=== PATIENT | male | born 1945 | race Caucasian/White ===

== ENCOUNTER 2018-08-02 14:23 | Outpatient (RCR) | payer MEDICARE, SELFPAY | END 2018-08-06 23:59 | disposition home or self-care (01) | LOC: PRC 14:23 | PROVIDERS: PCP Nurse Practitioner Primary Care; Visit Provider Nurse Practitioner Primary Care | DX: J44.9 Chronic obstructive pulmonary disease, unspecified (principal); Z51.89 Encounter for other specified aftercare ==

== ENCOUNTER 2018-09-04 11:21 | Outpatient (RCR) | payer OTHER, MEDICARE, SELFPAY | END 2018-09-06 23:59 | disposition home or self-care (01) | LOC: PRC 11:21 | PROVIDERS: PCP Nurse Practitioner Primary Care; Visit Provider Nurse Practitioner Primary Care | DX: J44.9 Chronic obstructive pulmonary disease, unspecified (principal); Z51.89 Encounter for other specified aftercare | CPT/HCPCS: G0424 ==

== ENCOUNTER 2018-09-07 12:36 | Outpatient (RCR) | payer OTHER, MEDICARE, SELFPAY | END 2018-10-06 23:59 | disposition home or self-care (01) | LOC: PRC 12:36 | PROVIDERS: PCP Nurse Practitioner Primary Care; Visit Provider Nurse Practitioner Primary Care | DX: J44.9 Chronic obstructive pulmonary disease, unspecified (principal) | CPT/HCPCS: G0424 ==

== ENCOUNTER 2018-10-04 02:00 | Outpatient (RCR) | payer OTHER, SELFPAY | END 2018-10-06 23:59 | disposition home or self-care (01) | LOC: PRC 02:00 | PROVIDERS: PCP Nurse Practitioner Primary Care; Visit Provider Family Medicine | DX: J44.9 Chronic obstructive pulmonary disease, unspecified (principal); Z51.89 Encounter for other specified aftercare | CPT/HCPCS: G0424 ==

== ENCOUNTER 2018-10-25 09:42 | Outpatient (RCR) | payer OTHER, SELFPAY | END 2018-11-06 23:59 | disposition home or self-care (01) | LOC: PRC 09:42 | PROVIDERS: PCP Nurse Practitioner Primary Care; Visit Provider Family Medicine | DX: J44.9 Chronic obstructive pulmonary disease, unspecified (principal); Z51.89 Encounter for other specified aftercare | CPT/HCPCS: G0424 ==

== ENCOUNTER 2018-11-08 12:37 | Outpatient (RCR) | payer OTHER, SELFPAY | END 2018-12-07 23:59 | disposition home or self-care (01) | LOC: PRC 12:37 | PROVIDERS: PCP Nurse Practitioner Primary Care; Visit Provider Family Medicine | DX: J44.9 Chronic obstructive pulmonary disease, unspecified (principal); Z51.89 Encounter for other specified aftercare ==

== ENCOUNTER 2019-11-16 09:50 | Outpatient (CLI) | payer OTHER, SELFPAY | END 2019-11-16 10:10 | PROVIDERS: PCP Nurse Practitioner Primary Care; Visit Provider Surgery | DX: Z01.818 Encounter for other preprocedural examination (principal) ==

== ENCOUNTER 2019-11-20 00:36 | Outpatient (CLI) | payer OTHER, SELFPAY ==
--- NOTE | 2019-11-20 09:27 | DI.NM_ITS ---
APPROVED REPORT Exam: Exercise Treadmill Patient Location: Out-Patient Room/Bed: Stress Nurse: Quyen Butler RN BMI: 29.98 Baseline Rhythm: Sinus Rhythm Indications: Patient reports his ???breathing is a little worse than normal??? [facility] and states their E[facility] showed an abnormality, patient was unsure of the change, however he reported ???a c hange in T wave???. 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 Medical History Medical History: Lung Tumor Cardiac Medications: Aspirin Allergies: No known drug allergies Cardiac Risk Factors: FHX of CAD, Hyperlipidemia, COPD Previous Cardiac Procedures: PCI Pretest Chest Pain Characteristics: None Exercise History: Sedentary Lung Sounds: Dimished throughout with crackles in bases bilaterally Heart Sounds: Regular Stress Test Details Test: Exercise stress converted to pharmacologic stress due to failure to obtain a diagnostic stress test. Rest Isotope: Tc-99m Sestamibi. Dose: 12.1 Date: 11/20/2019 Injection Time: 0850 Stress Isotope: Tc-99m Sestamibi. Dose: 37.5 Date: 11/20/2019 Injection Time: 1030 HR Max Heart Rate (APMHR): 144 bpm Resting HR Supine: 76 bpm Target HR (85% APMHR): 122 bpm Resting HR Standin bpm Max HR Achieved: 98 bpm % of APMHR: 68 HR response to stress: Normal HR response to stress BP Resting BP Supine: 130/80 mmHg Resting BP Standin/70 mmHg Max BP: 160/80 mmHg BP response to stress: Normal blood pressure response to stress. ECG Resting ECG: Sinus Rhythm Ectopy: Occasional PVC's Stress ECG: Sinus Rhythm ST Change: Normal Arrhythmia: VPC's Recovery ECG: Sinus Rhythm Recovery ST Change: Normal Recovery Arrhythmia: VPC Clinical Reason for Termination: Fatigue Stress Symptoms: None Exercise duration: 2 min30 sec Highest Stage Achieved: Stage 1: 1.7 mph at 10% grade. Exercise capacity: 4.64 METs Functional Capacity: Markedly diminished capacity Stress ECG Conclusion 1. This was an exercise treadmill test that was converted to pharmacological. 2. There is no evidence of ischemia on the ECG portion of this exam. Protocol Used: Danyel Protocol Stress Test Summary STAGE Time (mins) Speed (mph) Grade (%) HR BP SYMPTOMS METS Supine 76 130/80 Standing 77 140/70 1 minute of recovery 75 144/60 1 minute post Lexiscan injection 67 160/80 3 minute post Lexiscan injection 90 140/80 6 minute post Lexiscan injection 86 130/70 MPI Conclusion Patient's ejection fraction with stress was 60%. There were no wall motion abnormalities. There was no evidence of ischemia on the imaging portion of this exam This represents a normal SPECT stress test. Radiologist Interpretation Radiologist Interpretation by: Ralf Prasad MD Interpretation Date/Time: 11/20/2019 16:29:04
[2019-11-20] MEDS: Regadenoson 0.4 MG/5 ML SYR IVP (11:33)
== END 2019-11-20 00:56 ==
PROVIDERS: PCP Nurse Practitioner Primary Care; Visit Provider Nurse Practitioner Primary Care
DX: R06.02 Shortness of breath (principal); R94.31 Abnormal electrocardiogram [ECG] [EKG]; J44.9 Chronic obstructive pulmonary disease, unspecified; Z82.49 Family history of ischemic heart disease and other diseases of the circulatory system
CPT/HCPCS: 78452; 93017; J2785

== ENCOUNTER 2019-11-22 09:32 | Day surgery (SDC) | payer OTHER, SELFPAY ==
[2019-11-16 10:29] VITALS: BP 143/78; PULSE 95; RESP 18; TEMP 37; O2SAT 94
[2019-11-22 09:55] VITALS: BP 139/75; PULSE 79; RESP 18; TEMP 36.6; O2SAT 92
[2019-11-22] MEDS: Lactated Ringers 1,000 ML 80 ML IV (10:45)
--- NOTE | 2019-11-22 11:14 | HPE_ITS ---
Date of service: 11/22/19 Time of Service: 11:14 Assessment and Plan Assessment and plan (1) Shortness of breath: Status: Acute (2) History of colon polyps: Status: Acute Assessment and plan: Informed consent is obtained for the procedural (explained in simple layman's terms that the pt and/or family could understand) explaining risks vs benefits and alternatives to the procedure and consequences if we do not do the procedure and need/rational for the procedure. Risks include but are not limited to: bleeding, infection, perforation of esophagus, stomach, colon, small intestines, bronchus or trachea, or PTX. This would necessitate emergency surgery to repair the damage w/ possible ostomy; and other associated complications w/ the required surgery. Also complications of anesthesia including aspiration, PR/CVA/. History of Present Illness Consults Consult date: 11/22/19 Narrative: pt is here today in for screening CE. He has had polyps in the past on his last CE in 2013. He completed prep without problems. No abdominal pain or bleeding. His breathing is the same as always. No chest pain. No sputum. no fever/chills. He no longer smokes. No changes in meds or health status since he was in office for H&P. From H&P: 74 y/o male with history of COPD presents for colonoscopy screening pre-op. His last screening was in 2013, which was remarkable for several polyps. He denies a family history of colon cancer. He denies any changes in bowel habits including bloody or black tarry stools, abdominal pain, diarrhea or constipation. He denies constitutional symptoms. Denies use of marijuana or any other recreational or illegal drugs. He reports dyspnea with exertion. He is currently on 5L 02 intermittent during the day and 4L 02 at night while sleeping. He participates in pulmonary rehab at [facility] 2x/wk and reports use of the treadmill and bike. His last MET scores for pulmonary rehab at [facility] in 2018 was 2-3. He denies chest pain, palpitations, dyspnea. He denies prior history or family history of adverse reactions or complications with anesthesia. Review of Systems Narrative: chronic SOB All systems reviewed & are unremarkable except as noted in HPI and below Cardiovascular Cardiovascular: Reports dyspnea on exertion Respiratory Respiratory: Denies chest congestion, Reports cough, Denies excessive phlegm production, Denies pain on inspiration, Denies pain with cough and Reports dyspnea on exertion Comments: pt is on 4L at home. [facility] Medical History COPD (chronic obstructive pulmonary disease) (Chronic) Edema (Acute) History of colon polyps (Acute) Tubular adenoma Hyperlipidemia (Acute) Hypoxemia (Acute) Sensorineural hearing loss (Acute) Shortness of breath (Acute) Surgical History History of appendectomy (Chronic) History of colonoscopy with polypectomy (Acute ~09/07/14) Done at [place] in [place] Tubular adenoma, hyperplastic polyp History of hernia repair (Chronic) History of tonsillectomy (Chronic) Social History Smoking/Tobacco Use Status: Former Tobacco Use Quit Date: 11/07/94 Alcohol Intake: current Alcohol Intake frequency: 0-2 drinks per day Alcohol type: beer Drug use: Never Substance use type: former substance user Details: 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 Do you feel safe at home: Yes Do you feel safe in your relationship?: Yes Meds Home Medications and Allergies Home Medications Medication Instructions Recorded Confirmed Type albuterol sulfate 90 mcg/actuation 2 puff IH Q6H PRN 09/25/19 11/22/19 History aerosol inhaler budesonide-formoterol HFA 80 2 puff IH BID 09/25/19 11/16/19 History mcg-4.5 mcg/actuation aerosol inhaler tiotropium bromide 2.5 2 puff IH DAILY 09/25/19 11/16/19 History mcg/actuation mist for inhalation Oxygen #1 each 10/18/19 10/18/19 History acetaminophen 325 mg tablet 325 mg PO ONCE PRN 10/18/19 11/22/19 History aspirin 325 mg tablet,delayed 325 mg PO PRN tab 10/18/19 11/22/19 History release bisacodyl 5 mg tablet,delayed 5 mg PO ONCE #4 tab 10/18/19 11/22/19 Rx release ibuprofen 200 mg tablet 200 mg PO Q6H PRN 10/18/19 11/22/19 History polyethylene glycol 3350 17 238 g PO ONCE #238 gm 10/18/19 11/22/19 Rx gram/dose oral powder Allergies Allergy/AdvReac Type Severity Reaction Status Date / Time No Known Allergies Allergy Verified 11/22/19 10:10 Exam Const General: cooperative, healthy appearing, comfortable, no acute distress, well developed and well groomed Nutritional Appearance: average body habitus and well nourished Orientation: alert, awake and oriented x3 [facility] Head: normal to inspection, normocephalic and atraumatic Ears: hearing grossly normal bilaterally and external ears normal General nose exam: external nose normal Face and sinus: normal facial exam and sinuses nontender Mouth: oral mucosae normal, lip normal, tongue normal and moist mucous membranes Teeth and gingiva: dentition normal Eyes General: appearance normal, both eyes and all related structures Conjunctivae: conjunctivae normal Sclera: sclerae normal Pupils: PERRL Neck Neck: normal visual inspection and full ROM Chest Chest: normal inspection of the chest Resp Effort & Inspection: normal respiratory effort, able to speak in complete sentences, no cough, no nasal flaring, not tachypneic and no use of accessory muscles Auscultation: clear to auscultation bilaterally, no rales, no rhonchi and no wheezes Cardio Jugular venous pressure: no JVD Rate: regular rate Rhythm: regular rhythm GI Inspection: normal to inspection, no edema and non-distended Palpation: soft, no masses, nontender and No ascites Auscultation: normal bowel sounds Skin General skin exam: no rashes or lesions noted Trauma: no lacerations or abrasions Neuro General: alert, oriented x3, oriented, gait normal, moves all extremities, no focal motor deficits and CN's II-XI intact bilaterally Cognition: normal cognition Speech: speech normal Gait: normal gait Motor: muscle tone normal throughout Extrem General: normal to inspection, full ROM and no clubbing, cyanosis or edema Psych Appearance: grossly normal and well kempt Mental Status: mental status grossly normal Speech and Movement: speech and movement normal Affect: normal affect Results Last Vital Signs Temp 36.6 C 11/22/19 09:55 Pulse 79 11/22/19 09:55 Resp 18 11/22/19 09:55 BP 139/75 11/22/19 09:55 Pulse Ox 92 L 11/22/19 09:55
--- NOTE | 2019-11-22 11:54 | W.PM.DSUDISC ---
Discharge Plan Disposition Patient Disposition: HOME Condition: Good Discharge Details Attending Provider: Sravani Meyer Primary Care Provider: Traci Cervantes Home Meds and New Rx's Prescriptions: Continued albuterol sulfate 90 mcg/actuation HFA aerosol inhaler 2 puff IH Q6H PRNRF: 0 Symbicort 80-4.5 mcg/actuation HFA aerosol inhaler 2 puff IH BID RF: 0 Spiriva Respimat 2.5 mcg/actuation mist 2 puff IH DAILY RF: 0 (DME) Oxygen Tank See Rx Instructions .ROUTE .MEDSUPPLY Qty: 1 RF: 0 acetaminophen 325 mg tablet 325 mg PO ONCE PRNRF: 0 ibuprofen 200 mg tablet 200 mg PO Q6H PRNRF: 0 aspirin 325 mg tablet,delayed release (DR/EC) 325 mg PO PRN RF: 0 Discontinued polyethylene glycol 3350 17 gram/dose powder 238 g PO ONCE Qty: 238 RF: 0 bisacodyl [Dulcolax (bisacodyl)] 5 mg tablet,delayed release (DR/EC) 5 mg PO ONCE Qty: 4 RF: 0 Discharge Instructions Instructions: Diverticulosis (GEN), High Fiber Diet (GEN), Diverticulosis Diet (GEN) Additional Instructions: Findings:no polyps moderate diverticular Dx Follow up: no further C scopes required, unless changes in bowel habits, bleeding or unexplained wt loss. Please call if you develop: fevers >101.5 Nausea or Vomiting Abdominal pain that is not transient DAY SURGERY UNIT POST COLONOSCOPY INSTRUCTIONS 1. Because there will be medication in your system for the next 24 hours, you may feel a little sleepy. Your coordination will be affected. Therefore: a. Do not drive or operate dangerous equipment for 24 hours. b. Do not drink alcohol beverages for 24 hours (not even beer). c. Plan to go home and rest for the day. 2. Generally there are no restrictions on your activity after a day or so has gone by, but you may feel a bit fatigued for a few days. 3 After you arrive home you may have a light meal and return to a normal diet as you can tolerate it without feeling sick to your stomach. 4. After surgery, you may feel pain or discomfort. This should be only transient, but if it persists please contact your doctor. 5. If there are any questions regarding the findings of your procedure, please feel free to contact your doctor. 6. If you are unable to contact your doctor with a problem, contact the hospital at [phone]. 7. Continue all your regular medications unless directed otherwise. I understand the above instructions and have no questions. Signature of Patient or Responsible Adult Escort Date/Time Name of Responsible Adult Escort Signature of Nurse Date/Time Activity:: No lifting over 20 pounds or strenuous activity x24 hours Diet:: small light meals x24 hours Discharge Orders Discharge Orders: Discharge Order (Routine); Ordered 11/22/19 Ordered By: Sravani Meyer DS: Diagnosis Discharge Diagnosis (1) Shortness of breath: Status: Acute (2) History of colon polyps: Status: Acute
--- NOTE | 2019-11-22 11:57 | W.COLOREPORT ---
Date of service: 11/22/19 Time of Service: 11:57 Colonoscopy Report Date of procedure: 11/22/19 Pre-op diagnosis general: A. polyps/diverticular dx Post-op diagnosis procedure note: same Procedure: ce Surgeon: Sravani Meyer Anesthesia proc note operative: GETA Estimated blood loss (mL): 0 Pathology: none sent Disposition: same day Prep: Miralax/Dulcolax Findings: diverticula Procedure Description: After informed consent was obtained the patient was taken to the procedure room and placed in a left decubitous position. Monitors were applied and a time out was done. The patients name, date of , procedure, allergies to medications and metal in their body was reviewed. The patient was then sedated. Once sedated and comfortable a rectal exam was done. External exam was normal. Internal exam revealed a normal sphincter tone and no palpable masses. The prostate nl. The scope was then introduced and retrofelexed. no internal hemorrhoids were identified. The scope was then advanced to the cecum w/out difficulty. The TI and appendiceal orifice were identified. The prep was good . The scope was then slowly retracted over 10 minutes back into the rectum. Polyps were removed at none. He does have moderate diverticula confined to the sigmoid colon. No signs of active bleeding or infection at this time. The scope was removed and the patient was woken up and taken back to Same day surgery in stable condition. The patient tolerated the procedure well and there were no immediate complications. Follow up: The patient does not require a repeat scope unless they develop changes in bowel habits or other new gastrointestinal complaints.
[2019-11-22 12:50] VITALS: BP 120/74; PULSE 74; RESP 16; TEMP 36.2; O2SAT 96
== END 2019-11-22 13:20 | disposition home or self-care (01) ==
PROVIDERS: PCP Nurse Practitioner Primary Care; Visit Provider Surgery
PROC: 0DJD8ZZ Inspection of Lower Intestinal Tract, Via Natural or Artificial Opening Endoscopic (ICD-10-PCS; CPT 45378; principal; 2019-11-22 09:45)
DX: Z12.11 Encounter for screening for malignant neoplasm of colon (principal); Z87.19 Personal history of other diseases of the digestive system; K57.30 Diverticulosis of large intestine without perforation or abscess without bleeding; J44.9 Chronic obstructive pulmonary disease, unspecified
CPT/HCPCS: 45378; NC; J2001

== ENCOUNTER 2020-05-29 12:54 | Inpatient (IN) | payer OTHER, SELFPAY ==
[2020-05-29] VITALS (34 sets, daily range): BP systolic 121–184; BP diastolic 72–93; PULSE 79–105; RESP 12–22; TEMP 36.4–37; O2SAT 90–98
--- NOTE | 2020-05-29 12:45 | RT.EKG_ITS ---
APPROVED REPORT Exam: Resting ECG Patient Location: E HR:102 bpm ECG Measurements Heart Rate 102 AXIS WV 198 P 88 QRSd 104 QRS 85 QT 342 T 9 QTc 446 <Conclusion> Sinus tachycardia...rate> 99 Ventricular premature complex...V complex w/ short R-R interval
--- NOTE | 2020-05-29 13:10 | ED.GENADUL_ITS ---
Discharge Plan Disposition Patient Disposition: [facility] INPATIENT Condition: Stable Discharge Details Chief Complaint: SOB Clinical Impression: Pneumothorax, Acute dyspnea Admit Date/Time: 05/29/20 15:46 Admit Provider: Sheyla Carlos Attending Provider: Sheyla Carlos Primary Care Provider: Traci Cervantes ED Provider: Nicki Renee Hospital Course Hospital Course: 74 year old male with PMHx of severe emphysema, chronic hypoxic respiratory failure normally on 4.5 - 6 L of oxygen by [place], as well as h/o hypertension and lung cancer s/p XRT, in remission, who woke up at 3:30 in the morning with chest tightness and pain radiating to the back as well as shortness of breath and a feeling like he could not take a deep breath. He was worried it might be COVID- 19, he was also worried it might be his heart, so he took an aspirin. He continued to feel short of breath, however, so he came to the emergency room at [facility] around 1 pm. Here, he was found to have a large right pneumothorax occupying about 50% of the hemithorax. His oxygen saturations were in the 90s on his basline oxygen. A right chest tube was inserted in the ED, and the hospitalists were asked to admit the patient for further care. Surgery was consulted for further management of the Chest tube. This morning patient was feeling better. No Chest pain, equal aearation of breath sounds bilateral. CXR revealing no pneumothorax, surgery pulled Chest tube, with repeat CXR revealing no pneumothorax, therefore he is being discharged home. He can follow up with outpatient PCP in 1 week. Discharge Instructions Instructions: Spontaneous Pneumothorax (DC), Emphysema (DC) Additional Instructions: Follow up with PCP in 1 week Forms: Nursing Discharge Form Referrals: Traci Cervantes [Primary Care Provider] - (please call to follow up. 1-2 weeks) Discharge Data Discharge Date/Time-TO BE ENTERED AT DEPARTURE: 05/29/20 17:15 Medical Decision Making 1305 -- 74yo M with a history of COPD chronically on 5 L of home O2 and hyperlipidemia presents with shortness of breath, intermittent chest tightness and mid scapular back pain since last night. EKG notes a rate of 94, sinus with no acute ST ischemic changes. Blood pressure mildly hypertensive, otherwise vitals within normal limits. He has diminished breath sounds throughout. Differential diagnosis includes acute COPD exacerbation, pneumonia, ACS, dissection, PE, pneumothorax, acute bronchitis, acute CHF. Will place an IV, screening labs, CT chest and give a DuoNeb and Solu-Medrol reassess. 1430 -- Labs and imaging reviewed. Sodium 130. Troponin negative. CT chest notes a large right-sided pneumothorax approximately 50%. Discussed with surgery on-call who recommends chest to be placed anteriorly rat her than using Julio César pneumothorax pigtail kit. Dr. Meyer was present at bedside to assist upon placement of a 8Fr pneumothorax kit for use with water seal. Post chest tube placement chest x-ray confirmed appropriate placement and near resolution of pneumothorax. Case discussed with hospitalist who accepts patient for admission. Dr. Meyer will follow patient in consult. Medical Records Medical records reviewed: Yes I reviewed the patient's medical records. Imaging Data Radiologic Study: Radiologist's impression: CT THORAX CTA CLINICAL HISTORY: chest and back pain, sob. TECHNIQUE: Imaging Protocol: Axial CT angiography was performed with multi- slice acquisition and multi-planar and/or 3D reconstructions. CONTRAST MATERIAL: Intravenous: Omnipaque 350 Contrast volume:100 mL COMPARISON: No exams were available for comparison FINDINGS: Pulmonary Arteries: No evidence of filling defect to suggest pulmonary emboli. Tracheobronchial tree: Patent where visualized. Mediastinum and Whitney: No dominant adenopathy or fluid collection. Pulmonary parenchyma: Marked centrilobular emphysematous changes are present. There is scarring in the right lower lobe. Pulmonary fibrosis is present. Pleura: There is a large right pneumothorax occupying almost 50 percent of the hemithorax. No left pneumothorax is seen. No pleural effusion is present. Heart: The heart is not dilated. Moderate coronary artery calcification is present. No pericardial effusion. Aorta: Thoracic aorta non-dilated. Atherosclerosis. No dissection. Upper abdomen: Unremarkable. Bones: Degenerative changes. Soft tissues: Unremarkable. IMPRESSION: 1. No evidence of pulmonary embolism or thoracic aortic dissection or aneurysm. 2. Large right pneumothorax occupying almost 50 percent of the hemithorax. 3. Marked centrilobular emphysema. Pulmonary fibrosis. 4. Findings were discussed with the emergency department on the date of the examination. XR Chest, 1 View Exam date and time: 05/29/2020 4:48 PM Age: 74 years old Clinical indication: Device placement; Chest tube TECHNIQUE: Imaging protocol: XR of the chest Views: 1 view. COMPARISON: CT THORAX CTA 05/29/2020 2:37 PM FINDINGS: Tubes, catheters and devices: There is a small right chest tube with tip projecting near the right upper lung. Lungs: Mild COPD related pulmonary changes and pulmonary emphysema is appreciated. Pleural space: No significant right pneumothorax is appreciated at this time. No pleural effusions. Heart/Mediastinum: The heart is mildly enlarged. Bones/joints: No acute abnormality or aggressive osseous lesion. IMPRESSION: Status post right chest tube placement without a significant right pneumothorax appreciated at this time. Lab Data Lab results reviewed: Yes I reviewed the patient's lab results. Labs: Laboratory Tests Range/Units 05/29/20 05/29/20 05/29/20 13:05 13:05 13:05 WBC (4.4-10.8) k/cumm 9.41 RBC (4.50-6.00) m/cumm 4.71 Hgb (13.5-17.5) g/dL 14.9 Hct (40.0-50.0) % 43.8 MCV (80-95) fL 93.0 MCH (27.0-33.0) pg 31.6 MCHC (32.0-36.0) g/dL 34.0 RDW (11.8-14.1) % 12.4 Plt Count (130-400) x1000/uL 256 MPV (8.0-11.0) fL 9.4 Immature Gran % % 0.6 Neutrophils % 66.8 Lymphocytes % 24.9 Monocytes % 6.8 Eosinophils % 0.7 Basophils % 0.2 Absolute Neutrophils (1.2-6.7) k/cumm 6.28 Absolute Lymphocytes (1.2-3.4) k/cumm 2.34 Absolute Monocytes (0.11-0.7) k/cumm 0.64 Absolute Eosinophils (0.0-0.7) k/cumm 0.07 Absolute Basophils (0.0-0.2) k/cumm 0.02 PT (9.3-11.0) sec 10.0 INR (0.9-1.1) 1.0 APTT (21.0-31.4) sec 26.8 Sodium (136-145) mmol/L 130 L Potassium (3.5-5.1) mmol/L 4.2 Chloride (98-107) mmol/L 95 L Carbon Dioxide (21.0-32.0) mmol/L 28.9 Anion Gap (3-11) mmol/L 6.1 BUN (7-18) mg/dL 9 Creatinine (0.70-1.30) mg/dL 0.90 Estimated GFR/1.73 m2 (mL/min/1.73m2) >= 60.00 Glucose (74-106) mg/dL 134 H Calcium (8.5-10.1) mg/dL 8.5 Magnesium (1.8-2.4) mg/dL 1.8 Total Bilirubin (0.2-1.0) mg/dL 0.4 AST (15-37) U/L 29 ALT (16-63) U/L 35 Alkaline Phosphatase (46-116) U/L 97 Troponin I (<0.06) ng/mL < 0.05 Total Protein (6.4-8.2) g/dL 7.5 Albumin (3.4-5.0) g/dL 3.4 ECG Data Attestation: I personally reviewed and interpreted this ECG (s) as follows: Interpretation: Rate of 94, sinus, no acute ST ovation depression. MA 189. QRS 90. QTc 440. HPI General Mode of arrival: ambulatory . Date/Time Provider Initiated Documentation: 05/29/20 12:55 . Limitations to Documentation: no limitations . Information obtained by: patient . HPI Narrative: Patient is a 74-year-old male with a history of COPD chronically on 5 L of home O2 for the past several years who presents for shortness of breath, chest pain and back pain since last evening. Patient states he had some minimal substernal chest tightness last evening but denies any at present. He states his back pain is between his shoulder blades and also was not present at this time. He states his shortness of breath feels like he is having difficulty taking a deep breath. He denies any fever or cough. Related Data Home Medications Medication Instructions Recorded Confirmed albuterol sulfate 90 mcg/actuation 2 puff IH Q6H PRN 09/25/19 05/29/20 aerosol inhaler budesonide-formoterol HFA 80 2 puff IH BID 09/25/19 05/29/20 mcg-4.5 mcg/actuation aerosol inhaler tiotropium bromide 2.5 2 puff IH DAILY 09/25/19 05/29/20 mcg/actuation mist for inhalation Oxygen #1 each 10/18/19 05/29/20 acetaminophen 325 mg tablet 325 mg PO ONCE PRN 10/18/19 05/29/20 aspirin 325 mg tablet,delayed 325 mg PO PRN tab 10/18/19 05/29/20 release ibuprofen 200 mg tablet 200 mg PO Q6H PRN 10/18/19 05/29/20 lisinopril 10 mg PO DAILY 05/29/20 05/29/20 Allergies Allergy/AdvReac Type Severity Reaction Status Date / Time No Known Allergies Allergy Verified 05/29/20 13:03 General Stated Complaint: SOB SEBLE: 2 Review of Systems All systems reviewed & are unremarkable except as noted in HPI and below Constitutional Constitutional: Reports as per HPI, Denies chills and Denies fever(s) Eyes Eyes: Denies blurry vision ENT Ears, Nose, Mouth, and Throat: Denies dizziness, Denies sore throat and Denies throat swelling Cardiovascular Cardiovascular: Reports chest pain and Reports dyspnea Respiratory Respiratory: Denies cough and Reports dyspnea Gastrointestinal Gastrointestinal: Denies abdominal pain, Denies diarrhea and Denies vomiting Genitourinary Genitourinary: Denies hematuria and Denies dysuria Musculoskeletal Musculoskeletal: Reports back pain and Denies numbness Integumentary/Breasts Skin/Breast: Denies lesions and Denies rash Neurologic Neurologic: Denies dizziness, Denies localized weakness and Denies numbness Allergic/Immunologic Allergic/Immunologic: Denies throat swelling [facility] Medical History Chronic respiratory failure with hypoxia (Chronic) COPD (chronic obstructive pulmonary disease) (Chronic) Edema (Acute) Emphysematous bleb of lung (Acute) History of colon polyps (Acute) Tubular adenoma Hyperlipidemia (Acute) Hypertension (Chronic) Ruptured emphysematous bleb of lung (Acute) Sensorineural hearing loss (Acute) Shortness of breath (Acute) Surgical History History of appendectomy (Chronic) History of colonoscopy (Chronic ~11/22/19) History of colonoscopy with polypectomy (Acute ~09/07/14) Done at [facility] in [place] Tubular adenoma, hyperplastic polyp History of hernia repair (Chronic) History of tonsillectomy (Chronic) Social History Smoking/Tobacco Use Status: Former Tobacco Use Quit Date: 11/07/94 Alcohol Intake: current Alcohol Intake frequency: 0-2 drinks per day Alcohol type: beer Drug use: Never Substance use type: former substance user Details: 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 Do you feel safe at home: Yes Do you feel safe in your relationship?: Yes Exam Const General: cooperative and no acute distress HENMT Head: normal to inspection Eyes General: appearance normal, both eyes and all related structures EOM: EOM intact bilaterally Neck Neck: normal visual inspection and No submandibular swelling Lymphatic: no lymphadenopathy noted Chest Chest: normal inspection of the chest and no tenderness Resp Effort & Inspection: normal respiratory effort and able to speak in complete sentences Auscultation: diminished lung sounds bilaterally throughout Cardio Rate: regular rate Rhythm: regular rhythm GI Inspection: normal to inspection Palpation: soft, not firm, not rigid and nontender Auscultation: normal bowel sounds Skin General skin exam: no rashes or lesions noted Neuro General: patient alert, patient awake and patient oriented x3 Cognition: normal cognition Speech: speech normal Motor: muscle tone normal throughout Sensory Exam: no sensory deficits noted Extrem General: normal to inspection, full ROM, capillary refill normal, no calf tenderness bilaterally and no edema Psych Appearance: grossly normal Mental Status: mental status grossly normal Speech and Movement: speech and movement normal Affect: normal affect Course Vital Signs Vital signs: Vital Signs Temperature 98.6 F 05/29/20 12:57 Pulse 104 H 05/29/20 12:57 Respiratory Rate 05/29/20 12:57 Blood Pressure 168/77 H 05/29/20 12:57 Pulse Oximetry 96 05/29/20 12:57 Temperature 98.6 F 05/29/20 12:57 Temperature Source Skin 05/29/20 12:57 Pulse 104 H 05/29/20 12:57 Respiratory Rate 20 05/29/20 12:57 Blood Pressure 168/77 H 05/29/20 12:57 Pulse Oximetry 96 05/29/20 12:57 Oxygen Delivery Method Nasal Cannula 05/29/20 12:57 Oxygen Flow Rate 6 05/29/20 12:57 Pain Level 0 07/23/20 12:57 Procedures Chest Tube Chest Tube 1: Size of Sen[place]e Tube (mm): 8 Local Anesthetic: Lidocaine 1% and with Epi Amount of anesthesia used (mL): 10 Incision Made With: #11 blade Post Procedure: sutured to skin and sterile dressing applied Post Procedure CXR?: Yes Patient Tolerated Procedure: Yes Progress: Skin prepped with chlorahexadine. 8 [place] pneumothorax kit for use with water seal system utilized. The 8 [place]e catheter over 18-gauge pneumothorax needle placed in the midclavicular line at second intercostal space. Post procedure chest x-ray noted appropriate placement of tube as well as near resolution of pneumothorax.
[2020-05-29 13:33] LABS: Abs Immature Grans 0.06 k/cumm (0.0-0.09); Absolute Basophil Count 0.02 k/cumm (0.0-0.2); Absolute Eosinophil Count 0.07 k/cumm (0.0-0.7); Absolute Lymphocyte Count 2.34 k/cumm (1.2-3.4); Absolute Monocyte Count 0.64 k/cumm (0.11-0.7); Absolute Neutrophil Count 6.28 k/cumm (1.2-6.7); Basophils % 0.2; Eosinophils % 0.7; HCT 43.8 % (40.0-50.0); HGB 14.9 g/dL (13.5-17.5); Immature Grans % 0.6 %; Lymphocytes % 24.9; Mean Corpuscular Hemoglobin 31.6 pg (27.0-33.0); Mean Platelet Volume 9.4 fL (8.0-11.0); Monocytes % 6.8; Neutrophils % 66.8; Platelet Count 256 x1000/uL (130-400); RBC 4.71 m/cumm (4.50-6.00); RBC Distribution Width 12.4 % (11.8-14.1); White Blood Cell Count 9.41 k/cumm (4.4-10.8)
[2020-05-29 13:48] LABS: ALT 35 U/L (16-63); AST 29 U/L (15-37); Albumin 3.4 g/dL (3.4-5.0); Alkaline Phosphatase 97 U/L (46-116); Anion Gap 6.1 mmol/L (3-11); BUN 9 mg/dL (7-18); Bilirubin, Total 0.4 mg/dL (0.2-1.0); CO2 28.9 mmol/L (21.0-32.0); Calcium 8.5 mg/dL (8.5-10.1); Chloride 95 mmol/L (98-107); Glucose 134 mg/dL (74-106); Magnesium 1.8 mg/dL (1.8-2.4); Potassium 4.2 mmol/L (3.5-5.1); Sodium 130 mmol/L (136-145); Total Protein 7.5 g/dL (6.4-8.2)
[2020-05-29 13:50] LABS: PTT Activated 26.8 sec (21.0-31.4)
[2020-05-29 13:52] LABS: Troponin I < 0.05 ng/mL (<0.06)
--- NOTE | 2020-05-29 14:00 | DI.CT_ITS ---
EXAM: CT THORAX CTA CLINICAL HISTORY: chest and back pain, sob. TECHNIQUE: Imaging Protocol: Axial CT angiography was performed with multi-slice acquisition and mu lti-planar and/or 3D reconstructions. CONTRAST MATERIAL: Intravenous: Omnipaque 350 Contrast volume:100 mL COMPARISON: No exams were available for comparison FINDINGS: Pulmonary Arteries: No evidence of filling defect to suggest pulmonary emboli. Tracheobronchial tree: Patent where visualized. Mediastinum and Whitney: No dominant adenopathy or fluid collection. Pulmonary parenchyma: Marked centrilobular emphysematous changes are present. There is scarring in t he right lower lobe. Pulmonary fibrosis is present. Pleura: There is a large right pneumothorax occupying almost 50 percent of the hemithorax. No left p neumothorax is seen. No pleural effusion is present. Heart: The heart is not dilated. Moderate coronary artery calcification is present. No pericardial e ffusion. Aorta: Thoracic aorta non-dilated. Atherosclerosis. No dissection. Upper abdomen: Unremarkable. Bones: Degenerative changes. Soft tissues: Unremarkable. IMPRESSION: 1. No evidence of pulmonary embolism or thoracic aortic dissection or aneurysm. 2. Large right pneumothorax occupying almost 50 percent of the hemithorax. 3. Marked centrilobular emphysema. Pulmonary fibrosis. 4. Findings were discussed with the emergency department on the date of the examination. RADIATION DOSE DELIVERED: Total DLP DATA REPOSITORY: All CT scans at this facility are submitted to the National Radiology Data Registry (NRDR) Dose Index Registry (DIR) with the [employer] ([employer]). RADIATION OPTIMIZATION: All CT scans at this facility use at least one of these dose optimization te chniques: automated exposure control; mA and/or kV adjustment per patient size (includes targeted exa ms where dose is matched to clinical indication); or iterative reconstruction.
[2020-05-29] MEDS: methylPREDNISolone SUCC 125 MG VIAL IVP (14:24)
[2020-05-29] MEDS: Omnipaque 350 MG/ML 100 ML BTL IJ (14:41)
[2020-05-29] MEDS: Albuterol/Ipratropium 3 ML UPD VIAL UPD (14:48)
[2020-05-29] MEDS: Albuterol 2.5 MG/3 ML INH SOLN VIAL UPD (15:00)
[2020-05-29] MEDS: LORazepam 2 MG/ML VIAL 1 MG IVP (16:09)
--- NOTE | 2020-05-29 16:55 | DI.RAD_ITS ---
EXAM: XR PORTABLE CHEST AP POST LINE CLINICAL HISTORY: tube placement TECHNIQUE: 2D digital imaging was performed. COMPARISON: No exams were available for comparison FINDINGS: MEDIASTINUM: Normal. HEART: Normal. PULMONARY VASCULATURE: Normal. LUNGS: Lungs are hyperinflated suggesting underlying COPD. PLEURAL SPACE: There is a right chest tube projected over the right upper lobe without evidence of a pneumothorax. No pleural effusion. BONE:Normal. OTHER FINDINGS:Normal. IMPRESSION: Right chest tube without evidence of a pneumothorax. DATA REPOSITORY: RADIATION DOSE DELIVERED:
--- NOTE | 2020-05-29 17:08 | DI.VRAD_ITS ---
PROCEDURE INFORMATION: Exam: XR Chest, 1 View Exam date and time: 05/29/2020 4:48 PM Age: 74 years old Clinical indication: Device placement; Chest tube TECHNIQUE: Imaging protocol: XR of the chest Views: 1 view. COMPARISON: CT THORAX CTA 05/29/2020 2:37 PM FINDINGS: Tubes, catheters and devices: There is a small right chest tube with tip projecting near the right upper lung. Lungs: Mild COPD related pulmonary changes and pulmonary emphysema is appreciated. Pleural space: No significant right pneumothorax is appreciated at this time. No pleural effusions. Heart/Mediastinum: The heart is mildly enlarged. Bones/joints: No acute abnormality or aggressive osseous lesion. IMPRESSION: Status post right chest tube placement without a significant right pneumothorax appreciated at this time. Dictated and Authenticated by: Quirino Worley MD. Ordering:SEAN Caceres MD
[2020-05-29] MEDS: Ipratropium/Albuterol 4 GM 120 PUFF INH IH ×2 (17:47→20:07)
[2020-05-29] MEDS: Heparin 5,000 UNITS/ML VIAL 5000 UNITS SC (18:44)
--- NOTE | 2020-05-29 19:30 | HPE_ITS ---
Date of service: 05/29/20 Time of Service: 19:31 Assessment and Plan Assessment and plan (1) Spontaneous pneumothorax: Status: Acute Assessment and plan: s/p chest tube. General surgery consulted to help co-manage. (2) Chronic respiratory failure with hypoxia: Status: Chronic Assessment and plan: Due to COPD and pulmonary fibrosis. It is not clear if diagnosis of pulmonary fibrosis was known. Continue supplemental O2. (3) COPD (chronic obstructive pulmonary disease): Status: Chronic Assessment and plan: Not in acute exacerbation. Continue home therapy. (4) Hypertension: Status: Chronic Assessment and plan: hold dinesh-i as the patient just got IV contrast (5) DVT prophylaxis: Status: Acute Assessment and plan: heparin SC (6) Discharge planning issues: Status: Acute Assessment and plan: Full code History of Present Illness History of Present Illness Chief Complaint: shortness of breath and chest tightness Narrative: Mr Wagoner is a 74 year old male with PMHx of severe emphysema, chronic hypoxic respiratory failure normally on 4.5 - 6 L of oxygen by [place], as well as h/o hypertension and lung cancer s/p XRT, in remission, who woke up at 3:30 in the morning with chest tightness and pain radiating to the back as well as shortness of breath and a feeling like he could not take a deep breath. He was worried it might be COVID-19, though he did not have any fevers, any exposures to known patients with COVID-19, has been practicing social distancing and always wears a mask. He was also worried it might be his heart, so he took an aspirin. He continued to feel short of breath, however, so he came to the emergency room at [facility] around 1 pm. Here, he was found to have a large right pneumothorax occupying about 50% of the hemithorax. His oxygen saturations were in the 90s on his basline oxygen. A right chest tube was inserted in the ED, and the hospitalists were asked to admit the patient for further care. The patient states he is no longer short of breath, but does have some discomfort in the right chest at the site of chest tube insertion. Review of Systems All systems reviewed & are unremarkable except as noted in HPI and below [facility] Medical History (Updated 05/29/20 @ 19:47 by Sheyla Carlos MD) Chronic respiratory failure with hypoxia (Chronic) COPD (chronic obstructive pulmonary disease) (Chronic) Edema (Acute) History of colon polyps (Acute) Tubular adenoma Hyperlipidemia (Acute) Hypertension (Chronic) Sensorineural hearing loss (Acute) Shortness of breath (Acute) Surgical History (Updated 11/22/19 @ 12:58 by Amelie King RN) History of appendectomy (Chronic) History of colonoscopy (Chronic ~11/22/19) History of colonoscopy with polypectomy (Acute ~09/07/14) Done at [facility] in [place] Tubular adenoma, hyperplastic polyp History of hernia repair (Chronic) History of tonsillectomy (Chronic) Social History Smoking/Tobacco Use Status: Former Tobacco Use Quit Date: 11/07/94 Alcohol Intake: current Alcohol Intake frequency: 0-2 drinks per day Alcohol type: beer Drug use: Never Substance use type: former substance user Details: 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 Do you feel safe at home: Yes Do you feel safe in your relationship?: Yes Meds Home Medications and Allergies Home Medications Medication Instructions Recorded Confirmed Type albuterol sulfate 90 mcg/actuation 2 puff IH Q6H PRN 09/25/19 05/29/20 History aerosol inhaler budesonide-formoterol HFA 80 2 puff IH BID 09/25/19 05/29/20 History mcg-4.5 mcg/actuation aerosol inhaler tiotropium bromide 2.5 2 puff IH DAILY 09/25/19 05/29/20 History mcg/actuation mist for inhalation Oxygen #1 each 10/18/19 05/29/20 History acetaminophen 325 mg tablet 325 mg PO ONCE PRN 10/18/19 05/29/20 History aspirin 325 mg tablet,delayed 325 mg PO PRN tab 10/18/19 05/29/20 History release ibuprofen 200 mg tablet 200 mg PO Q6H PRN 10/18/19 05/29/20 History lisinopril 10 mg PO DAILY 05/29/20 05/29/20 History Allergies Allergy/AdvReac Type Severity Reaction Status Date / Time No Known Allergies Allergy Verified 05/29/20 13:03 Exam Narrative Exam Narrative: General: pleasant middle-aged male, sitting at the edge of the bed, not in acute respiratory distress, able to complete full sentences, no increased work of breathing Neurological: A&Ox3, no focal deficits except mild hearing loss Psychiatric: appropriate speech pattern/content Skin: visible skin intact HEENT: ATraumatic, normocephalic, EOMI, MMM, clear oropharynx, no submandibular or cervical lymphadenopathy, no goiter or JVD Cardiovascular: RRR, no m/r/g Lungs: CTAB. R chest tube in place to suction Gastrointestinal: soft, nontender, nondistended Genitourinary: deferred Extremities: trace edema BLEs Results Imaging Additional studies: CTA chest: 1. No evidence of pulmonary embolism or thoracic aortic dissection or aneurysm. 2. Large right pneumothorax occupying almost 50 percent of the hemithorax. 3. Marked centrilobular emphysema. Pulmonary fibrosis. CXR: Status post right chest tube placement without a significant right pn eumothorax appreciated at this time. EKG: ST, HR 102, no acute ischemia Labs Result diagrams: 05/29/20 13:05 05/29/20 13:05 Labs: Laboratory Results - last 24 hr 05/29/20 05/29/20 05/29/20 13:05 13:05 13:05 WBC 9.41 RBC 4.71 Hgb 14.9 Hct 43.8 MCV 93.0 MCH 31.6 MCHC 34.0 RDW 12.4 Plt Count 256 MPV 9.4 Immature Gran % 0.6 Neutrophils % 66.8 Lymphocytes % 24.9 Monocytes % 6.8 Eosinophils % 0.7 Basophils % 0.2 Absolute Neutrophils 6.28 Absolute Lymphocytes 2.34 Absolute Monocytes 0.64 Absolute Eosinophils 0.07 Absolute Basophils 0.02 PT 10.0 INR 1.0 APTT 26.8 Sodium 130 L Potassium 4.2 Chloride 95 L Carbon Dioxide 28.9 Anion Gap 6.1 BUN 9 Creatinine 0.90 Estimated GFR/1.73 m2 >= 60.00 Glucose 134 H Calcium 8.5 Magnesium 1.8 Total Bilirubin 0.4 AST 29 ALT 35 Alkaline Phosphatase 97 Troponin I < 0.05 Total Protein 7.5 Albumin 3.4 Last Vital Signs Temp 36.5 C 05/29/20 18:39 Pulse 93 H 05/29/20 18:39 Resp 19 05/29/20 18:39 BP 142/83 H 05/29/20 18:39 Pulse Ox 97 05/29/20 18:39 COVID-19 Screening Have you,or household,traveled outside [place] in last 14 days?: No Had IN PERSON contact w/suspected or confirmed C-19 person: No
[2020-05-29] MEDS: Sennosides/Docusate Sodium TAB 1 TAB PO (20:06)
--- NOTE | 2020-05-29 22:25 | W.SURGCON ---
Date of service: 05/29/20 Time of Service: 22:25 Assessment and Plan Assessment and plan (1) Hypertension: Status: Chronic (2) COPD (chronic obstructive pulmonary disease): Status: Chronic (3) Spontaneous pneumothorax: Status: Acute (4) Chronic respiratory failure with hypoxia: Status: Chronic (5) Emphysematous bleb of lung: Status: Acute (6) Ruptured emphysematous bleb of lung: Status: Acute Assessment and plan: ptx cath placed. lung is up. no air leak pulm toilet hopefully d/c in am conservative care History of Present Illness Narrative: pt was havig chest discomfort and came in to ED. 50% PTX.. He has had PTX in past. He is on 5L at home. He is currently H/D stable. A PTX catheter placed int he ED. Repeat CXR show good position adn resolution of PTX. No air leak. no fluids. admit for oxygen, pain control, suction. pulm toilet. xray in am. will follow closely. no problems w/ anethesia in the past. Consults Consult date: 05/29/20 Requesting physician: Nicki Renee Review of Systems All systems reviewed & are unremarkable except as noted in HPI and below Cardiovascular Cardiovascular: Reports dyspnea on exertion Respiratory Respiratory: Reports dyspnea on exertion Comments: ptx [facility] Medical History Chronic respiratory failure with hypoxia (Chronic) COPD (chronic obstructive pulmonary disease) (Chronic) Edema (Acute) History of colon polyps (Acute) Tubular adenoma Hyperlipidemia (Acute) Hypertension (Chronic) Sensorineural hearing loss (Acute) Shortness of breath (Acute) Surgical History History of appendectomy (Chronic) History of colonoscopy (Chronic ~11/22/19) History of colonoscopy with polypectomy (Acute ~09/07/14) Done at [place] in [place] Tubular adenoma, hyperplastic polyp History of hernia repair (Chronic) History of tonsillectomy (Chronic) Social History Smoking/Tobacco Use Status: Former Tobacco Use Quit Date: 11/07/94 Alcohol Intake: current Alcohol Intake frequency: 0-2 drinks per day Alcohol type: beer Drug use: Never Substance use type: former substance user Details: 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 Do you feel safe at home: Yes Do you feel safe in your relationship?: Yes Exam HENMT Ears: hearing grossly normal bilaterally Mouth: oral mucosae normal Teeth and gingiva: multiple restorations Eyes Sclera: sclerae normal Other: +glasses Neck Other: no JVD Chest Other: subC air/crepitus on R chest Resp Effort & Inspection: able to speak in complete sentences Auscultation: diminished lung sounds Cardio Rate: regular rate Rhythm: regular rhythm GI Other: soft/ non tender Extrem General: no clubbing, cyanosis or edema Results Last Vital Signs Temp 36.5 C 05/29/20 18:39 Pulse 93 H 05/29/20 18:39 Resp 19 05/29/20 18:39 BP 142/83 H 05/29/20 18:39 Pulse Ox 97 05/29/20 18:39 Labs Result diagrams: 05/29/20 13:05 05/29/20 13:05 Labs: Laboratory Results - last 24 hr 05/29/20 05/29/20 05/29/20 13:05 13:05 13:05 WBC 9.41 RBC 4.71 Hgb 14.9 Hct 43.8 MCV 93.0 MCH 31.6 MCHC 34.0 RDW 12.4 Plt Count 256 MPV 9.4 Immature Gran % 0.6 Neutrophils % 66.8 Lymphocytes % 24.9 Monocytes % 6.8 Eosinophils % 0.7 Basophils % 0.2 Absolute Neutrophils 6.28 Absolute Lymphocytes 2.34 Absolute Monocytes 0.64 Absolute Eosinophils 0.07 Absolute Basophils 0.02 PT 10.0 INR 1.0 APTT 26.8 Sodium 130 L Potassium 4.2 Chloride 95 L Carbon Dioxide 28.9 Anion Gap 6.1 BUN 9 Creatinine 0.90 Estimated GFR/1.73 m2 >= 60.00 Glucose 134 H Calcium 8.5 Magnesium 1.8 Total Bilirubin 0.4 AST 29 ALT 35 Alkaline Phosphatase 97 Troponin I < 0.05 Total Protein 7.5 Albumin 3.4
--- NOTE | 2020-05-30 | RT.EKG_ITS ---
APPROVED REPORT Exam: Resting ECG Patient Location: I HR:103 bpm ECG Measurements Heart Rate 103 AXIS CA 181 P 54 QRSd 99 QRS 72 QT 341 T 30 QTc 446 <Conclusion> Sinus tachycardia...rate> 99 Low voltage, precordial leads...precordial leads <1.0mV
[2020-05-30] MEDS: Heparin 5,000 UNITS/ML VIAL 5000 UNITS SC ×2 (02:18→09:24)
[2020-05-30 04:15] VITALS: BP 117/70; PULSE 86; RESP 17; TEMP 36; O2SAT 96
--- NOTE | 2020-05-30 06:13 | DI.RAD_ITS ---
EXAM: XR PORTABLE CHEST AP CLINICAL HISTORY: pneumothorax TECHNIQUE: 2D digital imaging was performed. COMPARISON: CR,XR XR PORTABLE CHEST AP POST LINE from 05/29/2020 FINDINGS: MEDIASTINUM: Normal. HEART: Normal. PULMONARY VASCULATURE: Normal. LUNGS: Linear infiltrate in the right lung base which may represent atelectasis. Hyperinflated lungs consistent with COPD. PLEURAL SPACE: No pleural effusion or pneumothorax. BONE:Normal. OTHER FINDINGS:There is a right chest tube with the pigtail in the right lung apex. IMPRESSION: Right chest tube without evidence of a pneumothorax. Right basilar infiltrate. DATA REPOSITORY: RADIATION DOSE DELIVERED:
--- NOTE | 2020-05-30 07:05 | DI.VRAD_ITS ---
PROCEDURE INFORMATION: Exam: XR Chest, 1 View Exam date and time: 05/30/2020 6:13 AM Age: 74 years old Clinical indication: Condition or disease; Other: Pneumothorax; Prior surgery; Surgery date: Post-operative (0-2 days); Surgery type: Chest tube TECHNIQUE: Imaging protocol: XR of the chest Views: 1 view. COMPARISON: CR XR PORTABLE CHEST AP POST LINE 05/29/2020 4:42 PM FINDINGS: Lungs: Emphysema Pigtail catheter right hemithorax superiorly. No clearly visualized pneumothorax. Mild right basilar airspace disease versus atelectasis. Pleural space: See Lungs finding. Heart/Mediastinum: Unremarkable. No cardiomegaly. Bones/joints: Unremarkable. IMPRESSION: Pigtail catheter right hemithorax superiorly. No clearly visualized pneumothorax. Mild right basilar airspace disease versus atelectasis. Dictated and Authenticated by: Flaquito Peck MD. Ordering:HATTIE Carrion MD
[2020-05-30 07:23] LABS: Anion Gap 10.3 mmol/L (3-11); BUN 19 mg/dL (7-18); CO2 23.7 mmol/L (21.0-32.0); Calcium 8.9 mg/dL (8.5-10.1); Chloride 95 mmol/L (98-107); Glucose 156 mg/dL (74-106); Potassium 4.6 mmol/L (3.5-5.1); Sodium 129 mmol/L (136-145)
--- NOTE | 2020-05-30 07:32 | W.PM.PROGNOT ---
Date of Service Date of service: 05/30/20 Time of Service: 06:30 Assessment and Plan Assessment and plan (1) Spontaneous pneumothorax: Status: Acute Assessment and plan: A\\ No air leak today with coughing Will clamp Chest tube P\\ Repeat CXR at 10 if no PTX then will remove chest tube and repeat CXR 2 hours later. If chest CXR looks good then may be discharged Subjective Subjective Interval history since last seen: Mr. Wagoner is feeling really well this morning. He has no shortness of breath. His only pain is right where the chest tube is inserted. He is eating without nausea or vomiting. Chest tube looks in good position and there is no air leak noted. Exam Const General: cooperative, comfortable and no acute distress Orientation: alert and oriented x3 HENMT Head: normocephalic and atraumatic Chest Chest: normal inspection of the chest Other: Chest tube in place. No air leak observed with cough Resp Effort & Inspection: normal respiratory effort Auscultation: clear to auscultation bilaterally Cardio Rate: regular rate Rhythm: regular rhythm Objective Objective Clinical Data: Abnormal lab results 05/29/20 05/30/20 Range/Units 13:05 06:43 Sodium 130 L 129 L (136-145) mmol/L Chloride 95 L 95 L (98-107) mmol/L BUN 19 H D (7-18) mg/dL Glucose 134 H 156 H (74-106) mg/dL Vital Signs Temperature 96.8 F L 05/30/20 04:15 Temperature Source Tympanic 05/30/20 04:15 Pulse 86 05/30/20 04:15 Pulse Rhythm Regular 05/29/20 20:00 Pulse 89 05/29/20 16:31 Respiratory Rate 17 05/30/20 04:15 Respiratory Effort Non-Labored 05/29/20 20:00 Respiratory Depth Normal 05/29/20 20:00 Respiratory Pattern Normal 05/29/20 20:00 Blood Pressure 117/70 05/30/20 04:15 Blood Pressure Mean 86 05/29/20 16:31 Pulse Oximetry 96 05/30/20 04:15 Oxygen Delivery Method Nasal Cannula 05/30/20 04:15 Oxygen Flow Rate 6 05/30/20 04:15 Pain Level 0 05/29/20 23:20 Intake & Output 05/29/20 05/29/20 05/30/20 11:59 23:59 11:59 Output Total 200 / 200 300 / 300 Balance -200 / -200 -300 / -300 Weight 204 lb 15.984 oz Output: Chest Tube Drainage 0 / 0 0 / 0 Urine 200 / 200 300 / 300 Other: Urine Color Yellow Yellow Urine Appearance Clear Clear Voiding Methods Urinal Urinal Laboratory Results WBC 9.41 k/cumm (4.4-10.8) 05/29/20 13:05 RBC 4.71 m/cumm (4.50-6.00) 05/29/20 13:05 Hgb 14.9 g/dL (13.5-17.5) 05/29/20 13:05 Hct 43.8 % (40.0-50.0) 05/29/20 13:05 MCV 93.0 fL (80-95) 05/29/20 13:05 MCH 31.6 pg (27.0-33.0) 05/29/20 13:05 MCHC 34.0 g/dL (32.0-36.0) 05/29/20 13:05 RDW 12.4 % (11.8-14.1) 05/29/20 13:05 Plt Count 256 x1000/uL (130-400) 05/29/20 13:05 MPV 9.4 fL (8.0-11.0) 05/29/20 13:05 Immature Gran % 0.6 % 05/29/20 13:05 Neutrophils % 66.8 05/29/20 13:05 Lymphocytes % 24.9 05/29/20 13:05 Monocytes % 6.8 05/29/20 13:05 Eosinophils % 0.7 05/29/20 13:05 Basophils % 0.2 05/29/20 13:05 Absolute Neutrophils 6.28 k/cumm (1.2-6.7) 05/29/20 13:05 Absolute Lymphocytes 2.34 k/cumm (1.2-3.4) 05/29/20 13:05 Absolute Monocytes 0.64 k/cumm (0.11-0.7) 05/29/20 13:05 Absolute Eosinophils 0.07 k/cumm (0.0-0.7) 05/29/20 13:05 Absolute Basophils 0.02 k/cumm (0.0-0.2) 05/29/20 13:05 PT 10.0 sec (9.3-11.0) 05/29/20 13:05 INR 1.0 (0.9-1.1) 05/29/20 13:05 APTT 26.8 sec (21.0-31.4) 05/29/20 13:05 Sodium 129 mmol/L (136-145) L 05/30/20 06:43 Potassium 4.6 mmol/L (3.5-5.1) 05/30/20 06:43 Chloride 95 mmol/L (98-107) L 05/30/20 06:43 Carbon Dioxide 23.7 mmol/L (21.0-32.0) 05/30/20 06:43 Anion Gap 10.3 mmol/L (3-11) 05/30/20 06:43 BUN 19 mg/dL (7-18) H D 05/30/20 06:43 Creatinine 1.10 mg/dL (0.70-1.30) 05/30/20 06:43 Estimated GFR/1.73 m2 >= 60.00 (mL/min/1.73m2) 05/30/20 06:43 Glucose 156 mg/dL (74-106) H 05/30/20 06:43 Calcium 8.9 mg/dL (8.5-10.1) 05/30/20 06:43 Magnesium 2.0 mg/dL (1.8-2.4) 05/30/20 06:43 Total Bilirubin 0.4 mg/dL (0.2-1.0) 05/29/20 13:05 AST 29 U/L (15-37) 05/29/20 13:05 ALT 35 U/L (16-63) 05/29/20 13:05 Alkaline Phosphatase 97 U/L (46-116) 05/29/20 13:05 Troponin I < 0.05 ng/mL (<0.06) 05/29/20 13:05 Total Protein 7.5 g/dL (6.4-8.2) 05/29/20 13:05 Albumin 3.4 g/dL (3.4-5.0) 05/29/20 13:05
[2020-05-30] MEDS: Ipratropium/Albuterol 4 GM 120 PUFF INH IH ×3 (07:38→15:12)
[2020-05-30] MEDS: Budesonide/Formoterol 160/4.5 6 GM 60 PUFF INH IH (07:39)
[2020-05-30 07:42] VITALS: BP 123/68; PULSE 83; RESP 17; TEMP 35.9; O2SAT 97
[2020-05-30 08:00] VITALS: O2SAT 98
[2020-05-30 08:42] LABS: COVID-19 RT-PCR UVMMC Result Negative (Negative)
--- NOTE | 2020-05-30 09:14 | INITIAL_ITS ---
- If Service Date Differs Date of service: 05/30/20 Time of Service: 09:14 Care Management Initial Assess REASON FOR HOSPITALIZATION:: Spontaneous pneumothorax PAST MEDICAL HISTORY/PAST SURGICAL HISTORY:: Medical History (Updated 05/29/20 @ 19:47 by Sheyla Carlos MD). Chronic respiratory failure with hypoxia (Chronic). COPD (chronic obstructive pulmonary disease) (Chronic). Edema (Acute). History of colon polyps (Acute). Tubular adenoma. Hyperlipidemia (Acute). Hypertension (Chronic). Sensorineural hearing loss (Acute). Shortness of breath (Acute). Surgical History (Updated 11/22/19 @ 12:58 by Amelie King RN). History of appendectomy (Chronic). History of colonoscopy (Chronic ~11/22/19). History of colonoscopy with polypectomy (Acute ~09/07/14). Done at [place] in [place]. Tubular adenoma, hyperplastic polyp. History of hernia repair (Chronic). History of tonsillectomy (Chronic) PREVIOUS FUNCTIONAL STATUS/SOCIAL/FAMILY SUPPORTS:: Evaristo lives alone in a single family home in [place], [place]. He has 4 children; 3 live in [place] and one lives in [place]. Evaristo is retired now but has had many different occupations. 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 Evaristo is independent, drives and does not require any community services except for home oxygen. [facility]var[facility]. CURRENT FUNCTIONAL STATUS:: Evaristo was sitting up in bed when CM met with him. He was pleasant and engaged readily with CM. Evaristo shared that he is feeling much better and hopes to be able to go home later today. ADVANCE DIRECTIVES:: States he has but not on file at [facility] Has patient been provided with info about the portal/API?: Yes Did the patient sign up for the portal?: Yes CODE STATUS:: Full Code INSURANCE COVERAGE / FINANCIAL ISSUES:: [facility] CURRENT HOME/COMMUNITY SERVICES/EQUIPMENT:: Evaristo has [facility] support and receives his home oxygen through them. PRIMARY CARE PHYSICIAN:: Traci Cervantes POTENTIAL DISCHARGE NEEDS:: Follow up with PCP and surgeon PATIENT/FAMILY EDUCATION NEEDS:: Discharge plan, limitations, follow up plan, Ask Me [employer] TRANSPORTATION:: via private vehicle PLAN:: Evaristo will be discharged home with no new services. [facility] will [facility] with [facility] and [facility]. He will transport home via private vehicle with a friend/relative.
[2020-05-30] MEDS: Sennosides/Docusate Sodium TAB 1 TAB PO (09:24)
[2020-05-30 09:30] VITALS: O2SAT 98
--- NOTE | 2020-05-30 10:00 | DI.RAD_ITS ---
EXAM: XR PORTABLE CHEST AP CLINICAL HISTORY: chest tube clamped, TECHNIQUE: 2D digital imaging was performed. COMPARISON: CR,XR XR PORTABLE CHEST AP from 05/30/2020 FINDINGS: MEDIASTINUM: Normal. HEART: Normal. PULMONARY VASCULATURE: Normal. LUNGS: Clear. COPD. PLEURAL SPACE: No pleural effusion or pneumothorax. BONE:Normal. OTHER FINDINGS:There is again seen a right chest tube overlying the superior right hemithorax. IMPRESSION: No pneumothorax. DATA REPOSITORY: RADIATION DOSE DELIVERED:
[2020-05-30 12:13] VITALS: BP 146/65; PULSE 82; RESP 18; TEMP 36.5; O2SAT 95
--- NOTE | 2020-05-30 13:00 | DI.RAD_ITS ---
EXAM: XR PORTABLE CHEST AP CLINICAL HISTORY: chest tube removal TECHNIQUE: 2D digital imaging was performed. COMPARISON: CR XR PORTABLE CHEST AP from 05/30/2020 FINDINGS: MEDIASTINUM: Normal. HEART: Normal. PULMONARY VASCULATURE: Normal. LUNGS: Clear. COPD. PLEURAL SPACE: No pleural effusion or pneumothorax. BONE:Within normal limits for the patient's age. OTHER FINDINGS:The right chest tube has been removed. IMPRESSION: Status post right chest tube removal. No pneumothorax. DATA REPOSITORY: RADIATION DOSE DELIVERED:
--- NOTE | 2020-05-30 13:24 | W.PM.DS.N ---
Date of service: 05/30/20 Time of Service: 13:26 DS: Diagnosis Discharge Diagnosis (1) Spontaneous pneumothorax: Start date: 05/30/20 Start time: 13:26 Status: Acute Asessment and Plan: Chest Tube placed by surgery. Improving overnight, he does state he has had an episode of this in the past and he was hospitalized one night for the same with discharge the next day. The tube was removed by surgery this am with post CXR confirming no pneumothorax. He is being discharged home Above case discussed with Dr. Carlos who is in agreement. Discharge Plan Disposition Patient Disposition: HOME Condition: Stable Discharge Details Chief Complaint: SOB Clinical Impression: Pneumothorax, Acute dyspnea Reason For Visit: SPONTANEOUS PNEUMOTHORAX Admit Date/Time: 05/29/20 15:46 Admit Provider: Sheyla Carlos Attending Provider: Sheyla Carlos Primary Care Provider: Traci Cervantes ED Provider: Nicki Renee Hospital Course Hospital Course: 74 year old male with PMHx of severe emphysema, chronic hypoxic respiratory failure normally on 4.5 - 6 L of oxygen by ND, as well as h/o hypertension and lung cancer s/p XRT, in remission, who woke up at 3:30 in the morning with chest tightness and pain radiating to the back as well as shortness of breath and a feeling like he could not take a deep breath. He was worried it might be COVID-19, he was also worried it might be his heart, so he took an aspirin. He continued to feel short of breath, however, so he came to the emergency room at [facility] around 1 pm. Here, he was found to have a large right pneumothorax occupying about 50% of the hemithorax. His oxygen saturations were in the 90s on his basline oxygen. A right chest tube was inserted in the ED, and the hospitalists were asked to admit the patient for further care. Surgery was consulted for further management of the Chest tube. This morning patient was feeling better. No Chest pain, equal aearation of breath sounds bilateral. CXR revealing no pneumothorax, surgery pulled Chest tube, with repeat CXR revealing no pneumothorax, therefore he is being discharged home. He can follow up with outpatient PCP in 1 week. Home Meds and New Rx's Prescriptions: Continued albuterol sulfate 90 mcg/actuation HFA aerosol inhaler 2 puff IH Q6H PRNRF: 0 Symbicort 80-4.5 mcg/actuation HFA aerosol inhaler 2 puff IH BID RF: 0 Spiriva Respimat 2.5 mcg/actuation mist 2 puff IH DAILY RF: 0 (DME) Oxygen Tank See Rx Instructions .ROUTE .MEDSUPPLY Qty: 1 RF: 0 acetaminophen 325 mg tablet 325 mg PO ONCE PRNRF: 0 ibuprofen 200 mg tablet 200 mg PO Q6H PRNRF: 0 aspirin 325 mg tablet,delayed release (DR/EC) 325 mg PO PRN RF: 0 lisinopril 10 mg tablet 10 mg PO DAILY RF: 0 Discharge Instructions Instructions: Spontaneous Pneumothorax (DC), Emphysema (DC) Additional Instructions: Follow up with PCP in 1 week Activity:: Activity as Tolerated Equipment/Supplies:: Oxygen (L/min Below) Diet:: Low Sodium Discharge Orders Discharge Orders: Discharge Order (Routine); Ordered 05/30/20 Ordered By: Michelle Wray DS: Summary Status at Discharge Functional status at discharge: independent ambulation Overall status at discharge: patient is back to baseline Mental Status: mental status grossly normal Speech and Movement: speech and movement normal Mood: congruent mood Affect: normal affect Exam Narrative Exam Narrative: General: pleasant middle-aged male, sitting at the edge of the bed, able to complete full sentences, no increased work of breathing Neurological: A&Ox3, no focal deficits except mild hearing loss Psychiatric: appropriate speech pattern/content Skin: visible skin intact HEENT: ATraumatic, normocephalic, EOMI, MMM, clear oropharynx, no submandibular or cervical lymphadenopathy, no goiter or JVD Cardiovascular: RRR, no m/r/g Lungs: CTAB, Gastrointestinal: soft, nontender, nondistended Extremities: trace edema BLEs Psych Mental Status: mental status grossly normal Speech and Movement: speech and movement normal Mood: congruent mood Affect: normal affect DS: Data Vitals/I&O Vitals and I&O: Vital Signs Temperature 36.5 C 05/30/20 12:13 Temperature Source Tympanic 05/30/20 12:13 Pulse 82 05/30/20 12:13 Pulse Rhythm Regular 05/30/20 09:40 Pulse 89 05/29/20 16:31 Respiratory Rate 18 05/30/20 12:13 Respiratory Effort Non-Labored 05/30/20 09:40 Respiratory Depth Normal 05/30/20 09:40 Respiratory Pattern Normal 05/30/20 09:40 Blood Pressure 146/65 H 05/30/20 12:13 Blood Pressure Mean 86 05/29/20 16:31 Pulse Oximetry 95 05/30/20 12:13 Oxygen Delivery Method Nasal Cannula 05/30/20 12:13 Oxygen Flow Rate 3.5 05/30/20 12:13 Pain Level 0 05/30/20 12:13 Intake & Output 05/29/20 05/30/20 05/30/20 23:59 11:59 23:59 Intake Total 240 / 240 Output Total 200 / 200 450 / 450 Balance -200 / -200 -450 / -210 240 / -210 Weight 92.986 kg 90 kg Intake: Oral 240 / 240 Output: Chest Tube Drainage 0 / 0 0 / 0 Urine 200 / 200 450 / 450 Other: Urine Color Yellow Yellow Urine Appearance Clear Clear Urine Odor Normal Voiding Methods Urinal Urinal Data Completed and Pending Completed studies during hospitalization [Text1]: FINDINGS: Pulmonary Arteries: No evidence of filling defect to suggest pulmonary emboli. Tracheobronchial tree: Patent where visualized. Mediastinum and Whitney: No dominant adenopathy or fluid collection. Pulmonary parenchyma: Marked centrilobular emphysematous changes are present. There is scarring in the right lower lobe. Pulmonary fibrosis is present. Pleura: There is a large right pneumothorax occupying almost 50 percent of the hemithorax. No left pneumothorax is seen. No pleural effusion is present. Heart: The heart is not dilated. Moderate coronary artery calcification is present. No pericardial effusion. Aorta: Thoracic aorta non-dilated. Atherosclerosis. No dissection. Upper abdomen: Unremarkable. Bones: Degenerative changes. Soft tissues: Unremarkable. IMPRESSION: 1. No evidence of pulmonary embolism or thoracic aortic dissection or aneurysm. 2. Large right pneumothorax occupying almost 50 percent of the hemithorax. 3. Marked centrilobular emphysema. Pulmonary fibrosis. 4. Findings were discussed with the emergency department on the date of the examination. MEDIASTINUM: Normal. HEART: Normal. PULMONARY VASCULATURE: Normal. LUNGS: Lungs are hyperinflated suggesting underlying COPD. PLEURAL SPACE: There is a right chest tube projected over the right upper lobe without evidence of a pneumothorax. No pleural effusion. BONE:Normal. OTHER FINDINGS:Normal. IMPRESSION: Right chest tube without evidence of a pneumothorax. FINDINGS: MEDIASTINUM: Normal. HEART: Normal. PULMONARY VASCULATURE: Normal. LUNGS: Linear infiltrate in the right lung base which may represent atelectasis. Hyperinflated lungs consistent with COPD. PLEURAL SPACE: No pleural effusion or pneumothorax. BONE:Normal. OTHER FINDINGS:There is a right chest tube with the pigtail in the right lung apex. IMPRESSION: Right chest tube without evidence of a pneumothorax. Right basilar infiltrate. COMPARISON: CR XR PORTABLE CHEST AP POST LINE 05/29/2020 4:42 PM FINDINGS: Lungs: Emphysema Pigtail catheter right hemithorax superiorly. No clearly visualized pneumothorax. Mild right basilar airspace disease versus atelectasis. Pleural space: See Lungs finding. Heart/Mediastinum: Unremarkable. No cardiomegaly. Bones/joints: Unremarkable. IMPRESSION: Pigtail catheter right hemithorax superiorly. No clearly visualized pneumothorax. Mild right basilar airspace disease versus atelectasis. Exam(s) a RAD:XR portable chest AP EXAM: XR PORTABLE CHEST AP CLINICAL HISTORY: chest tube clamped, TECHNIQUE: 2D digital imaging was performed. COMPARISON: CR,XR XR PORTABLE CHEST AP from 05/30/2020 FINDINGS: MEDIASTINUM: Normal. HEART: Normal. PULMONARY VASCULATURE: Normal. LUNGS: Clear. COPD. PLEURAL SPACE: No pleural effusion or pneumothorax. BONE:Normal. OTHER FINDINGS:There is again seen a right chest tube overlying the superior right hemithorax. IMPRESSION: No pneumothorax. a RAD:XR portable chest AP EXAM: XR PORTABLE CHEST AP CLINICAL HISTORY: post pneumothorax TECHNIQUE: 2D digital imaging was performed. COMPARISON: CR XR PORTABLE CHEST AP from 05/30/2020 FINDINGS: MEDIASTINUM: Normal. HEART: Normal. PULMONARY VASCULATURE: Normal. LUNGS: Clear. COPD. PLEURAL SPACE: No pleural effusion or pneumothorax. BONE:Within normal limits for the patient's age. OTHER FINDINGS:Normal. IMPRESSION: No pneumothorax. Labs on day of discharge: Labs from last 24 hours 05/30/20 05/30/20 05/29/20 08:29 06:43 16:58 WBC RBC Hgb Hct MCV MCH MCHC RDW Plt Count MPV Immature Gran % Neutrophils % Lymphocytes % Monocytes % Eosinophils % Basophils % Absolute Neutrophils Absolute Lymphocytes Absolute Monocytes Absolute Eosinophils Absolute Basophils PT INR APTT Sodium Cancelled 129 L Potassium Cancelled 4.6 Chloride Cancelled 95 L Carbon Dioxide Cancelled 23.7 Anion Gap Cancelled 10.3 BUN Cancelled 19 H D Creatinine Cancelled 1.10 Estimated GFR/1.73 m2 Cancelled >= 60.00 Glucose Cancelled 156 H Calcium Cancelled 8.9 Magnesium 2.0 Total Bilirubin AST ALT Alkaline Phosphatase Troponin I Total Protein Albumin COVID-19 PCR Negative Nasopharyn COVID-19 PCR Not Applicable Ref Test Perform Site [facility] 05/29/20 05/29/20 05/29/20 13:05 13:05 13:05 WBC 9.41 RBC 4.71 Hgb 14.9 Hct 43.8 MCV 93.0 MCH 31.6 MCHC 34.0 RDW 12.4 Plt Count 256 MPV 9.4 Immature Gran % 0.6 Neutrophils % 66.8 Lymphocytes % 24.9 Monocytes % 6.8 Eosinophils % 0.7 Basophils % 0.2 Absolute Neutrophils 6.28 Absolute Lymphocytes 2.34 Absolute Monocytes 0.64 Absolute Eosinophils 0.07 Absolute Basophils 0.02 PT 10.0 INR 1.0 APTT 26.8 Sodium 130 L Potassium 4.2 Chloride 95 L Carbon Dioxide 28.9 Anion Gap 6.1 BUN 9 Creatinine 0.90 Estimated GFR/1.73 m2 >= 60.00 Glucose 134 H Calcium 8.5 Magnesium 1.8 Total Bilirubin 0.4 AST 29 ALT 35 Alkaline Phosphatase 97 Troponin I < 0.05 Total Protein 7.5 Albumin 3.4 COVID-19 PCR Nasopharyn COVID-19 PCR Ref Test Perform Site [facility] Medical History Chronic respiratory failure with hypoxia (Chronic) COPD (chronic obstructive pulmonary disease) (Chronic) Edema (Acute) Emphysematous bleb of lung (Acute) History of colon polyps (Acute) Tubular adenoma Hyperlipidemia (Acute) Hypertension (Chronic) Ruptured emphysematous bleb of lung (Acute) Sensorineural hearing loss (Acute) Shortness of breath (Acute) Surgical History History of appendectomy (Chronic) History of colonoscopy (Chronic ~11/22/19) History of colonoscopy with polypectomy (Acute ~09/07/14) Done at [place] in [place] Tubular adenoma, hyperplastic polyp History of hernia repair (Chronic) History of tonsillectomy (Chronic) Social History Smoking/Tobacco Use Status: Former Tobacco Use Quit Date: 11/07/94 Alcohol Intake: current Alcohol Intake frequency: 0-2 drinks per day Alcohol type: beer Drug use: Never Substance use type: former substance user Details: 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 Do you feel safe at home: Yes Do you feel safe in your relationship?: Yes
--- NOTE | 2020-05-30 13:49 | NUR.NOTE ---
Nursing Note: Patient refused lisinopril this morning. He told this scribe that he has been taking the med at for years and that was his preference. This scribe honored patients wishes
--- NOTE | 2020-05-30 14:45 | DI.RAD_ITS ---
EXAM: XR PORTABLE CHEST AP CLINICAL HISTORY: post pneumothorax TECHNIQUE: 2D digital imaging was performed. COMPARISON: CR XR PORTABLE CHEST AP from 05/30/2020 FINDINGS: MEDIASTINUM: Normal. HEART: Normal. PULMONARY VASCULATURE: Normal. LUNGS: Clear. COPD. PLEURAL SPACE: No pleural effusion or pneumothorax. BONE:Within normal limits for the patient's age. OTHER FINDINGS:Normal. IMPRESSION: No pneumothorax. DATA REPOSITORY: RADIATION DOSE DELIVERED:
--- NOTE | 2020-05-30 16:13 | PDOC.CMDIS ---
- If Service Date Differs Date of service: 05/30/20 Time of Service: 16:13 LACE Index Scoring Tool - Questions: Length of Stay (in days): 1 Acuity (Admit via E.D.?): Yes Comorbidities: Chronic Pulmonary Disease E.D. Visits: 1 - Answers: Total Score: 7 Risk of Readmission: Low Risk Care Management Discharge Reason for Hospitalization: Spontaneous pneumothorax Discharge Plan: Evaristo will be discharged home with no new services. He will follow up with his PCP and providers at the [facility]. He will transport home via private vehicle with a friend/relative. Patient/Family Education Needs: Discharge plan, limitations, follow up plan, Ask Me Three
== END 2020-05-30 16:20 | disposition home or self-care (01) | DRG 200 ==
LOC: ER 16:42 → MS 17:17
PROVIDERS: Admitting Provider Internal Medicine; Emergency Provider Physician Assistant; PCP Nurse Practitioner Primary Care; Visit Provider Internal Medicine
DX: J93.11 Primary spontaneous pneumothorax (principal); J96.11 Chronic respiratory failure with hypoxia; C34.90 Malignant neoplasm of unspecified part of unspecified bronchus or lung; J43.9 Emphysema, unspecified; Z99.81 Dependence on supplemental oxygen; I10 Essential (primary) hypertension; Z92.3 Personal history of irradiation; R06.02 Shortness of breath; E78.5 Hyperlipidemia, unspecified; H90.5 Unspecified sensorineural hearing loss; Z87.891 Personal history of nicotine dependence
CPT/HCPCS: 32551; 36415; 71045; 71275; 80048; 80053; 93005; 94640; 96374; 96375; 99221; 99223; 99231; 99239; 99252; 99285; NC; U0003; 83735; 84484; 85025; 85610; 85730; 93010; J1644; J2060; J2930; J3490; J7613; J7620

== ENCOUNTER 2021-03-06 11:59 | Outpatient (RCR) | payer OTHER, SELFPAY | END 2021-03-06 23:59 | disposition home or self-care (01) | LOC: CR 11:59 | PROVIDERS: PCP Nurse Practitioner Primary Care; Visit Provider Family Medicine | DX: R69 Illness, unspecified (principal) ==

== ENCOUNTER 2021-03-30 16:20 | Outpatient (RCR) | payer OTHER, MEDICARE, SELFPAY | END 2021-04-06 23:59 | disposition home or self-care (01) | LOC: CR 16:20 | PROVIDERS: PCP Nurse Practitioner Primary Care; Visit Provider Family Medicine | DX: Z51.89 Encounter for other specified aftercare (principal); I25.2 Old myocardial infarction; Z95.5 Presence of coronary angioplasty implant and graft | CPT/HCPCS: S9472 ==

== ENCOUNTER 2021-04-08 12:12 | Emergency (ER) | payer OTHER, MEDICARE, SELFPAY ==
[2021-04-08] VITALS (16 sets, daily range): BP systolic 114–155; BP diastolic 60–71; PULSE 61–75; RESP 8–19; TEMP 37.1; O2SAT 92–99
--- NOTE | 2021-04-08 12:00 | RT.EKG_ITS ---
APPROVED REPORT Exam: Resting ECG Reason for Exam: DIZZINESS Patient Location: E HR:68 bpm ECG Measurements Heart Rate 68 AXIS UT 290 P 152 QRSd 107 QRS 40 QT 406 T [id number] QTc 432 Conclusion Sinus or ectopic atrial rhythm...P axis (-45,135) Prolonged UT interval...UT >220, V-rate 50- 90 Nonspecific T abnormalities, lateral leads...T <-0.10mV, I aVL V5 V6
--- NOTE | 2021-04-08 12:22 | ED.GENADUL_ITS ---
Discharge Plan Disposition Patient Disposition: HOME Condition: Stable Discharge Details Clinical Impression: Light-headed Primary Care Provider: Traci Cervantes ED Provider: Robb Deng Home Meds and New Rx's Prescriptions: Continued albuterol sulfate 90 mcg/actuation HFA aerosol inhaler 2 puff IH Q6H PRNRF: 0 Symbicort 80-4.5 mcg/actuation HFA aerosol inhaler 2 puff IH BID RF: 0 Spiriva Respimat 2.5 mcg/actuation mist 2 puff IH DAILY RF: 0 (DME) Oxygen Tank See Rx Instructions .ROUTE .MEDSUPPLY Qty: 1 RF: 0 acetaminophen 325 mg tablet 325 mg PO ONCE PRNRF: 0 metoprolol succinate 50 mg tablet extended release 24 hr 50 mg PO DAILY RF: 0 metronidazole 500 mg tablet 500 mg PO TID RF: 0 clopidogrel 75 mg Tablet 75 mg PO DAILY RF: 0 ciprofloxacin HCl 500 mg tablet 500 mg PO BID RF: 0 aspirin 81 mg Tablet,Delayed Release (Dr/Ec) 81 mg PO DAILY RF: 0 nitroglycerin 0.4 mg Tablet, Sublingual 0.4 mg SUBLINGUAL Q5M PRNRF: 0 rosuvastatin 40 mg tablet 40 mg PO HS RF: 0 Discharge Instructions Instructions: Lightheadedness (ED) Additional Instructions: your symptoms were likely provoked by taking extra metoprolol the last few days. Take this once a day as prescribed follow up with your primary care provider within 1 week if you feel more ill, have chest pain/pressure, difficulty breathing or weakness return to the emergency department Medical Decision Making 75 yo male with hx of severe emphysema, cad s/p multiple stents and had TX in February of this year treated [place] [facility] [place] placed in RCA per documentation from [facility] where he was seen last week, chronic hypoxic respiratory failure normally on 4.5 - 6 L of oxygen by [place], as well as h/o hypertension and lung cancer in remission, who states he is currently being treated for diverticulitis, comes in with sensation of lightheadedness starting this morning. He states he noticed he had been mistakenly taken an extra dose of his metoprolol at night when he is supposed to just take it in the morning, and realized it after looking at his pill bottles. This morning he noticed he felt lightheaded, drove to cardiac rehab for routine visit and told them of his symptoms and he was referred here. HE denies any chest pressure, no dyspnea, no fevers or cough. HE appears well speaking in full sentences. HE has nofocal motor or sensation deficits, CN II-XII intact, ekg unchanged with no acute ischemic changes compared to old. Given the symptoms of lightheadedness will obtain labs to evaluate for possible cardiac ischemia though this doesn't seem likely given lack of chest pain. Will also obtain cbc to evaluate for anemia and electrolyte abnormalities. No dizziness, falls and no deficits on neuro exam so doubt central stroke or peripheral vertigo. He has no abdomen tenderness on exam and denies fevers or vomit. He states last Tuesday he was seen at [place] and diagnosed after a CT with diverticulitis and had blood in his stools so he said they transferred him to [facility] where he was treated with iv antibiotics and had no procedures done. Will try to get records from this but given he has no pain or gi symptoms now do not feel ct imaging of abdomen indicated. Labs unremarkable and he states he feels well and has no symptoms. He has capacity to make his own decisions and I did advise rechecking an ekg at the 3 hour debbie but he declined. HE understands reasoning for doing the 3 hour troponin to exclude nstemi but he still declines as he has no symptoms now. He understands risks of missing an nstemi including and permanent disability and is willing to accept these risks. His symptoms started over 3 hours prior to him coming here so after discussion again he did not want to stay which given length of time with symptoms and lack of pain/pressure unlikely acs. He is able to ambulate on his own without symptoms and feels well enough to go home and requests discharge. I did advise he take his metoprolol once a day as prescribed and suspect doubling his dose the last few days led to his symptoms today. He was advised to follow up with his pcp and return precautions given ECG Data Attestation: I personally reviewed and interpreted this ECG (s) as follows: Prior ECG tracings: available for review Interpretation: sinus rhythm, rate of 68, pr 290, no acute st t wave ischemic findings HPI General Mode of arrival: ambulatory . Date/Time Provider Initiated Documentation: 04/08/21 12:18 . Limitations to Documentation: no limitations . Information obtained by: patient . History of Present Illness 75 year old M presents to the emergency department with the chief complaint of lightheaded, described as moderate, and it has been constant. No relieving factors improve symptom(s), No exacerbating factors reported . Patient notes no other symptoms.. Patient did receive the following treatments prior to arrival, none Related Data Home Medications Medication Instructions Recorded Confirmed albuterol sulfate 90 mcg/actuation 2 puff IH Q6H PRN 09/25/19 04/08/21 aerosol inhaler budesonide-formoterol HFA 80 2 puff IH BID 09/25/19 04/08/21 mcg-4.5 mcg/actuation aerosol inhaler tiotropium bromide 2.5 2 puff IH DAILY 09/25/19 04/08/21 mcg/actuation mist for inhalation Oxygen #1 each 10/18/19 04/08/21 acetaminophen 325 mg tablet 325 mg PO ONCE PRN 10/18/19 04/08/21 aspirin 81 mg PO DAILY 04/08/21 04/08/21 ciprofloxacin HCl 500 mg PO BID 04/08/21 04/08/21 clopidogrel 75 mg PO DAILY 04/08/21 04/08/21 metoprolol succinate 50 mg PO DAILY 04/08/21 04/08/21 metronidazole 500 mg PO TID 04/08/21 04/08/21 nitroglycerin 0.4 mg SUBLINGUAL Q5M PRN 04/08/21 04/08/21 rosuvastatin 40 mg PO HS 04/08/21 04/08/21 Allergies Allergy/AdvReac Type Severity Reaction Status Date / Time No Known Allergies Allergy Verified 04/08/21 12:25 General SEBLE: 2 Review of Systems All systems reviewed & are unremarkable except as noted in HPI and below Constitutional Constitutional: Denies chills, Denies fever(s) and Denies weakness Cardiovascular Cardiovascular: Denies chest pain and Denies dyspnea Respiratory Respiratory: Denies cough and Denies dyspnea Gastrointestinal Gastrointestinal: Denies nausea and Denies vomiting Musculoskeletal Musculoskeletal: Denies joint swelling Neurologic Neurologic: Denies weakness Psychiatric Psychiatric: Denies depression [facility] Medical History (Updated 04/08/21 @ 13:30 by Robb Deng MD) Chronic respiratory failure with hypoxia COPD (chronic obstructive pulmonary disease) Edema Emphysematous bleb of lung History of colon polyps Tubular adenoma Hyperlipidemia Hypertension Ruptured emphysematous bleb of lung Sensorineural hearing loss Shortness of breath Surgical History History of appendectomy History of colonoscopy (~11/22/19) History of colonoscopy with polypectomy (~09/07/14) Done at [facility] in [place] Tubular adenoma, hyperplastic polyp History of hernia repair History of tonsillectomy Social History Smoking/Tobacco Use Status: Former Tobacco Use Quit Date: 11/07/94 Smoking risk assessment performed?: Yes Alcohol Intake: current Alcohol Intake frequency: 0-2 drinks per day Alcohol type: beer Drug use: Never Substance use type: former substance user Details: 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 Do you feel safe at home: Yes Do you feel safe in your relationship?: Yes Exam Const General: no acute distress Orientation: alert HENMT Head: normal to inspection Ears: external ears normal General nose exam: external nose normal Mouth: moist mucous membranes Eyes General: appearance normal, both eyes and all related structures Neck Neck: normal visual inspection Resp Effort & Inspection: normal respiratory effort and able to speak in complete sentences Cardio Rate: regular rate GI Palpation: soft Skin General skin exam: no rashes or lesions noted Neuro General: patient alert and patient oriented x3 Extrem General: normal to inspection Psych Mental Status: mental status grossly normal
[2021-04-08 12:35] LABS: Abs Immature Grans 0.06 10^3/uL (0.0-0.06); Absolute Basophil Count 0.04 10^3/uL (0.0-0.2); Absolute Eosinophil Count 0.07 10^3/uL (0.0-0.7); Absolute Lymphocyte Count 2.26 10^3/uL (1.2-3.4); Absolute Neutrophil Count 6.07 10^3/uL (1.2-6.7); Basophils % 0.4; Eosinophils % 0.8; HCT 40.2 % (40.0-50.0); HGB 13.7 g/dL (13.5-17.5); Immature Grans % 0.6; Lymphocytes % 24.3; MCH 31.2 pg (27.0-33.0); MCHC 34.1 % (32.0-36.0); MCV 91.6 fL (80-95); MPV 9.4 fL (8.0-11.0); Monocytes % 8.6; Neutrophils % 65.3; Nucleated RBC 0 %; Platelet Count 232 10^3/uL (130-400); RBC 4.39 10^6/uL (4.36-5.78); RDW 12.1 % (11.8-14.1); RDW-SD 40.9 fL
[2021-04-08 12:53] LABS: ALT 37 U/L (16-63); AST 35 U/L (15-37); Albumin 3.6 g/dL (3.4-5.0); Alkaline Phosphatase 78 U/L (46-116); Anion Gap 6.3 mmol/L (3-11); BUN 11 mg/dL (7-18); Bilirubin, Total 0.4 mg/dL (0.2-1.0); CO2 28.7 mmol/L (21.0-32.0); Calcium 8.4 mg/dL (8.5-10.1); Chloride 98 mmol/L (98-107); Glucose 115 mg/dL (74-106); Potassium 3.8 mmol/L (3.5-5.1); Sodium 133 mmol/L (136-145); Total Protein 7.3 g/dL (6.4-8.2); Troponin I < 0.05 ng/mL (<0.06)
[2021-04-08 12:54] LABS: PTT Activated 24.7 sec (21.0-27.5); Prothrombin Time 10.4 sec (9.3-11.0)
[2021-04-08] MEDS: metroNIDAZOLE 500 MG TAB PO (13:06)
== END 2021-04-08 13:38 | disposition home or self-care (01) ==
PROVIDERS: Emergency Provider Emergency Medicine; PCP Nurse Practitioner Primary Care
DX: R42 Dizziness and giddiness (principal)
CPT/HCPCS: 36415; 80053; 93005; 99283; 84484; 85025; 85610; 85730; 93010

== ENCOUNTER 2021-05-06 11:00 | Outpatient (RCR) | payer OTHER, SELFPAY | END 2021-05-06 23:59 | disposition home or self-care (01) | LOC: CR 11:00 | PROVIDERS: PCP Nurse Practitioner Primary Care; Visit Provider Family Medicine | DX: Z51.89 Encounter for other specified aftercare (principal); I25.2 Old myocardial infarction; Z95.5 Presence of coronary angioplasty implant and graft | CPT/HCPCS: S9472 ==

== ENCOUNTER 2021-06-05 11:00 | Outpatient (RCR) | payer OTHER, MEDICARE, SELFPAY | END 2021-06-06 23:59 | disposition home or self-care (01) | LOC: CR 11:00 | PROVIDERS: PCP Nurse Practitioner Primary Care; Visit Provider Family Medicine | DX: Z51.89 Encounter for other specified aftercare (principal); I25.2 Old myocardial infarction; Z95.5 Presence of coronary angioplasty implant and graft | CPT/HCPCS: S9472 ==

== ENCOUNTER 2021-07-07 10:00 | Outpatient (RCR) | payer OTHER, MEDICARE, SELFPAY ==
[2021-07-07 10:18] VITALS: BP 150/82; PULSE 78; O2SAT 93
== END 2021-07-07 23:59 | disposition home or self-care (01) ==
LOC: CR 10:00
PROVIDERS: PCP Nurse Practitioner Primary Care; Visit Provider Family Medicine
DX: Z51.89 Encounter for other specified aftercare (principal); I25.2 Old myocardial infarction; Z95.5 Presence of coronary angioplasty implant and graft
CPT/HCPCS: S9472

== ENCOUNTER 2021-08-06 10:00 | Outpatient (RCR) | payer SELFPAY ==
[2021-07-08 00:22] VITALS: BP 150/82; PULSE 78
[2021-07-09 10:24] VITALS: BP 158/79; PULSE 67; O2SAT 98
[2021-07-14 13:24] VITALS: BP 135/73; PULSE 79
[2021-07-16 10:01] VITALS: BP 143/78; PULSE 93; O2SAT 93
[2021-07-23 10:00] VITALS: BP 146/76; PULSE 82
[2021-07-28 10:09] VITALS: BP 156/85; PULSE 80; O2SAT 95
[2021-07-30 10:51] VITALS: BP 143/78; PULSE 70; O2SAT 98
[2021-08-04 10:22] VITALS: BP 160/81; PULSE 76
[2021-08-06 09:56] VITALS: BP 124/70; PULSE 79; O2SAT 90
[2021-08-11 09:57] VITALS: BP 149/87; PULSE 74; O2SAT 94
== END 2021-08-06 23:59 | disposition home or self-care (01) ==
LOC: CR 10:00
PROVIDERS: PCP Nurse Practitioner Primary Care; Visit Provider Family Medicine
DX: Z51.89 Encounter for other specified aftercare (principal)

== ENCOUNTER 2021-09-03 10:00 | Outpatient (RCR) | payer SELFPAY ==
[2021-08-07 00:26] VITALS: BP 124/70; PULSE 79
[2021-08-13 10:00] VITALS: BP 142/74; PULSE 89; O2SAT 93
[2021-08-18 10:04] VITALS: BP 153/88; PULSE 78; O2SAT 97
[2021-08-25 10:01] VITALS: BP 143/82; PULSE 69; O2SAT 93
[2021-08-27 10:04] VITALS: BP 149/87; PULSE 88; O2SAT 94
[2021-09-01 10:19] VITALS: BP 133/77; PULSE 84
[2021-09-03 10:02] VITALS: BP 132/79; PULSE 83; O2SAT 93
== END 2021-09-06 23:59 | disposition home or self-care (01) ==
LOC: CR 10:00
PROVIDERS: PCP Nurse Practitioner Primary Care; Visit Provider Family Medicine
DX: Z51.89 Encounter for other specified aftercare (principal); R69 Illness, unspecified

== ENCOUNTER 2021-10-06 10:00 | Outpatient (RCR) | payer SELFPAY ==
[2021-09-07 00:26] VITALS: BP 132/79; PULSE 83
[2021-09-08 10:01] VITALS: BP 134/68; PULSE 77; O2SAT 95
[2021-09-10 09:58] VITALS: BP 127/71; PULSE 82; O2SAT 97
[2021-09-15 10:18] VITALS: BP 134/81; PULSE 84
[2021-09-17 11:10] VITALS: BP 154/103; PULSE 77; O2SAT 97
[2021-09-24 09:46] VITALS: BP 125/66; PULSE 95; O2SAT 93
[2021-09-29 10:01] VITALS: BP 161/78; PULSE 89; O2SAT 98
[2021-10-06 10:34] VITALS: BP 153/79; PULSE 92
== END 2021-10-06 23:59 | disposition home or self-care (01) ==
LOC: CR 10:00
PROVIDERS: PCP Nurse Practitioner Primary Care; Visit Provider Family Medicine
DX: Z51.89 Encounter for other specified aftercare (principal); R69 Illness, unspecified

== ENCOUNTER 2021-11-05 10:00 | Outpatient (RCR) | payer SELFPAY ==
[2021-10-07 00:09] VITALS: BP 153/79; PULSE 92
[2021-10-08 10:17] VITALS: BP 149/71; PULSE 90; O2SAT 95
[2021-10-13 10:36] VITALS: BP 154/77; PULSE 78; O2SAT 96
[2021-10-15 10:05] VITALS: BP 132/65; PULSE 80; O2SAT 92
[2021-10-20 11:42] VITALS: BP 146/71; PULSE 80
[2021-11-05 10:09] VITALS: BP 144/85; PULSE 74
== END 2021-11-06 23:59 | disposition home or self-care (01) ==
LOC: CR 10:00
PROVIDERS: PCP Nurse Practitioner Primary Care; Visit Provider Family Medicine
DX: Z51.89 Encounter for other specified aftercare (principal); R69 Illness, unspecified

== ENCOUNTER 2021-11-09 15:04 | Outpatient (RCR) | payer SELFPAY ==
[2021-11-07 00:05] VITALS: BP 144/85; PULSE 74
== END 2021-12-07 23:59 | disposition home or self-care (01) ==
LOC: CR 15:04
PROVIDERS: PCP Nurse Practitioner Primary Care; Visit Provider Family Medicine
DX: R69 Illness, unspecified (principal)

== ENCOUNTER 2022-02-02 10:00 | Outpatient (RCR) | payer SELFPAY ==
[2022-01-05 10:09] VITALS: BP 152/73; PULSE 82; O2SAT 98
[2022-01-07 10:08] VITALS: BP 137/72; PULSE 88; O2SAT 93
[2022-01-12 10:04] VITALS: BP 128/68; PULSE 86; O2SAT 96
[2022-01-19 09:57] VITALS: BP 148/74; PULSE 83; O2SAT 97
[2022-01-21 09:56] VITALS: BP 142/67; PULSE 81; O2SAT 96
[2022-01-26 09:57] VITALS: BP 143/79; PULSE 83; O2SAT 97
[2022-01-28 10:20] VITALS: BP 142/66; PULSE 75; O2SAT 97
[2022-02-02 10:14] VITALS: BP 157/83; PULSE 78; O2SAT 98
[2022-02-04 10:00] VITALS: BP 150/83; PULSE 84
== END 2022-02-04 23:59 | disposition home or self-care (01) ==
LOC: CR 10:00
PROVIDERS: PCP Nurse Practitioner Primary Care; Visit Provider Family Medicine
DX: R69 Illness, unspecified (principal)

== ENCOUNTER 2022-03-04 10:00 | Outpatient (RCR) | payer SELFPAY ==
[2022-02-05 00:07] VITALS: BP 150/83; PULSE 84
[2022-02-11 10:13] VITALS: BP 150/80; PULSE 74; O2SAT 97
[2022-02-16 11:12] VITALS: BP 156/72; PULSE 70; O2SAT 97
[2022-02-18 10:29] VITALS: BP 152/78; PULSE 78; O2SAT 97
[2022-02-23 10:12] VITALS: BP 136/63; PULSE 79; O2SAT 95
[2022-02-25 10:15] VITALS: BP 143/66; PULSE 77; O2SAT 94
[2022-03-02 10:07] VITALS: BP 126/72; PULSE 90; O2SAT 94
[2022-03-04 09:51] VITALS: BP 140/78; PULSE 80; O2SAT 95
== END 2022-03-06 23:59 | disposition home or self-care (01) ==
LOC: CR 10:00
PROVIDERS: PCP Nurse Practitioner Primary Care; Visit Provider Internal Medicine Cardiovascular Disease
DX: R69 Illness, unspecified (principal)

== ENCOUNTER 2022-04-06 10:03 | Outpatient (RCR) | payer SELFPAY ==
[2022-03-07 00:04] VITALS: BP 140/78; PULSE 80
[2022-03-09 10:08] VITALS: BP 131/71; PULSE 84
[2022-03-11 10:17] VITALS: BP 147/77; PULSE 82; O2SAT 97
[2022-03-16 10:00] VITALS: BP 139/78; PULSE 80; O2SAT 95
[2022-03-18 10:28] VITALS: BP 140/71; PULSE 75; O2SAT 94
[2022-03-30 10:22] VITALS: BP 138/77; PULSE 80
[2022-04-01 09:59] VITALS: BP 142/71; PULSE 83
[2022-04-06 10:02] VITALS: BP 150/73; PULSE 81; O2SAT 96
== END 2022-04-06 23:59 | disposition home or self-care (01) ==
LOC: CR 10:03
PROVIDERS: PCP Nurse Practitioner Primary Care; Visit Provider Internal Medicine Cardiovascular Disease
DX: R69 Illness, unspecified (principal)

== ENCOUNTER 2022-05-06 10:00 | Outpatient (RCR) | payer SELFPAY ==
[2022-04-07 00:12] VITALS: BP 150/73; PULSE 81
[2022-04-08 10:18] VITALS: BP 150/78; PULSE 82; O2SAT 92
[2022-04-13 10:23] VITALS: BP 145/68; PULSE 65; O2SAT 96
[2022-04-15 10:05] VITALS: BP 144/72; PULSE 77
[2022-04-20 10:21] VITALS: BP 141/65; PULSE 76; O2SAT 97
[2022-04-22 10:11] VITALS: BP 152/76; PULSE 73
[2022-04-29 10:07] VITALS: BP 141/68; PULSE 79
[2022-05-04 10:31] VITALS: BP 129/72; PULSE 81
[2022-05-06 10:04] VITALS: BP 160/78; PULSE 65; O2SAT 96
== END 2022-05-06 23:59 | disposition home or self-care (01) ==
LOC: CR 10:00
PROVIDERS: PCP Nurse Practitioner Primary Care; Visit Provider Internal Medicine Cardiovascular Disease
DX: R69 Illness, unspecified (principal)

== ENCOUNTER 2022-05-27 10:00 | Outpatient (RCR) | payer SELFPAY ==
[2022-05-13 10:54] VITALS: BP 130/56; PULSE 83; O2SAT 89
[2022-05-20 10:54] VITALS: BP 146/74; PULSE 64; O2SAT 97
[2022-05-25 10:01] VITALS: BP 163/90; PULSE 65; O2SAT 93
[2022-05-27 11:16] VITALS: BP 157/79; PULSE 64; O2SAT 92
== END 2022-06-06 23:59 | disposition home or self-care (01) ==
LOC: CR 10:00
PROVIDERS: PCP Nurse Practitioner Primary Care; Visit Provider Internal Medicine Cardiovascular Disease
DX: R69 Illness, unspecified (principal)

== ENCOUNTER 2022-07-06 10:09 | Outpatient (RCR) | payer SELFPAY ==
[2022-06-07 00:15] VITALS: BP 157/79; PULSE 64
[2022-06-08 10:27] VITALS: BP 149/74; PULSE 63; O2SAT 95
[2022-06-10 10:31] VITALS: BP 150/68; PULSE 62
[2022-06-15 11:33] VITALS: BP 151/70; PULSE 62
[2022-06-17 09:55] VITALS: BP 162/80; PULSE 64; O2SAT 91
[2022-06-22 10:00] VITALS: BP 152/60; PULSE 68; O2SAT 92
[2022-06-24 09:55] VITALS: BP 139/67; PULSE 63; O2SAT 95
[2022-06-29 09:58] VITALS: BP 158/76; PULSE 66; O2SAT 93
[2022-07-01 09:54] VITALS: BP 154/74; PULSE 68; O2SAT 91
[2022-07-01 10:57] VITALS: BP 137/75; PULSE 68; O2SAT 88
[2022-07-06 10:10] VITALS: BP 137/67; PULSE 65; O2SAT 96
== END 2022-07-07 23:59 | disposition home or self-care (01) ==
LOC: CR 10:09
PROVIDERS: PCP Nurse Practitioner Primary Care; Visit Provider Internal Medicine Cardiovascular Disease
DX: R69 Illness, unspecified (principal)

== ENCOUNTER 2022-08-05 10:05 | Outpatient (RCR) | payer SELFPAY ==
[2022-07-08 00:06] VITALS: BP 137/67; PULSE 65
[2022-07-15 10:03] VITALS: BP 159/70; PULSE 73; O2SAT 93
[2022-07-22 10:14] VITALS: BP 163/70; PULSE 82; O2SAT 95
[2022-07-27 10:11] VITALS: BP 137/70; PULSE 66; O2SAT 95
[2022-07-29 10:14] VITALS: BP 152/70; PULSE 61; O2SAT 96
[2022-08-03 10:17] VITALS: BP 152/72; O2SAT 95
[2022-08-05 10:06] VITALS: BP 157/79; PULSE 60; O2SAT 95
== END 2022-08-06 23:59 | disposition home or self-care (01) ==
LOC: CR 10:05
PROVIDERS: PCP Nurse Practitioner Primary Care; Visit Provider Internal Medicine Cardiovascular Disease
DX: R69 Illness, unspecified (principal)